=== PATIENT | male | born 1970 | race African-American/Black ===

== ENCOUNTER 2021-04-03 14:09 | Inpatient (IN) | payer BC, SELFPAY ==
[2021-04-03] VITALS (8 sets, daily range): BP systolic 125–142; BP diastolic 80–89; PULSE 119–128; RESP 20–46; TEMP 37.1–37.9; O2SAT 84–96; BMI 32.5
--- NOTE | ~2021-04-03 | XR_ITS ---
XR chest 1V portable DATE: 04/12/2021 06:05 INDICATION: Respiratory failure TECHNIQUE: Portable AP chest on 04/12/2021 at 0535 hours COMPARISON: 04/11/2021 portable AP chest at 0102 hours FINDINGS: Left upper extremity PIC catheter overlies the proximal superior vena cava. ET tube in sati sfactory position 4.1 cm above chino. NG tube in proximal stomach, proximal side-port 3 centers dist al to the diaphragmatic hiatus. Interval pneumomediastinum and subcutaneous emphysema in the cervical area since 04/11/2021. Heart size appears within normal range. There are diffuse bilateral groundglass pulmonary infiltrates. Minimal bilateral pleural effusions ar e suggested. No obvious pneumothorax. IMPRESSION: Interval pneumomediastinum and cervical subcutaneous emphysema since 04/11/2021 Reviewed, dictated and finalized at location A. R EXPERT IMPRESSION: Interval pneumomediastinum and cervical subcutaneous emphysema sinc e 04/11/2021
--- NOTE | ~2021-04-03 | XR_ITS ---
EXAMINATION: XR chest 1V portable DATE: 04/05/2021 05:39 INDICATION: Respiratory failure TECHNIQUE: frontal view of the chest was obtained. COMPARISON: Chest radiograph dated 04/04/2021 FINDINGS: Persistent opacities in the bilateral mid and lower lung zones. No pleural effusion or pneumothorax. The cardiomediastinal silhouette is normal. Left upper extremity peripherally inserted central venous catheter (PICC) tip at the caudal superior vena cava. IMPRESSION: 1. Unchanged opacities in the bilateral mid and lower lung zones which could represent pulmonary deon a or pneumonia. Reviewed, dictated and finalized at location A. SORTER IMPRESSION: 1. Unchanged opacities in the bilateral mid and lower lung zones which could re present pulmonary edema or pneumonia.
--- NOTE | ~2021-04-03 | XR_ITS ---
EXAMINATION: XR chest PICC line EXAM DATE: 04/04/2021 12:25 INDICATION: PICC line insertion. TECHNIQUE: Portable AP frontal chest x-ray was obtained. Comparison is made to prior examination from 04/03/2021. FINDINGS: There is a right-sided PICC line with tip projecting over the cavoatrial junction. Moderat e amount of bilateral ill-defined pneumonia or edema not significantly changed. No pneumothorax or pl eural effusion. The cardiomediastinal silhouette is prominent but magnified on this AP technique. Car diac silhouette is stable in size compared to prior exam. There are no osseous abnormalities identifi ed. IMPRESSION: Moderate amount of pneumonia or edema. PICC line in position. Reviewed, dictated and finalized at location A. MACEUTICAL SALESPERSON
--- NOTE | ~2021-04-03 | XR_ITS ---
EXAMINATION: XR chest 1V portable EXAM DATE: 04/08/2021 05:49 INDICATION: Respiratory failure. TECHNIQUE: Portable AP frontal chest x-ray was obtained. Comparison is made to prior examination from 04/07/2021. FINDINGS: There is a left-sided PICC line in position. Diffuse airspace disease, pneumonia and/or edema unchanged. There are no sizable pleural effusions. There is no pneumothorax suspected. The cardiomediastinal silhouette is prominent but magnified o n this AP technique. The bones and soft tissues are unremarkable. There is no significant interval change compared to prior exam. IMPRESSION: Diffuse edema or pneumonia unchanged. Reviewed, dictated and finalized at location G. GN LEADER
--- NOTE | ~2021-04-03 | XR_ITS ---
EXAMINATION: XR chest 1V portable DATE: 04/07/2021 06:33 INDICATION: Respiratory failure TECHNIQUE: frontal view of the chest was obtained. COMPARISON: Chest radiograph dated 04/06/2021 and 04/04/2021 FINDINGS: Continued gradual improvement of patchy now relatively groundglass opacities throughout the right narendra g and in the left mid and lower lung zones. No pleural effusion or pneumothorax. The cardiomediastina l silhouette is normal. Left upper extremity peripherally inserted central venous catheter (PICC) tip at the mid superior vena cava. IMPRESSION: 1. Continued gradual decrease in diffuse bilateral lung disease consistent with improving pulmonary e amilcar or pneumonia. Reviewed, dictated and finalized at location A. TENDER IMPRESSION: 1. Continued gradual decrease in diffuse bilateral lung disease consistent with improving pulmonary edema or pneumonia.
--- NOTE | ~2021-04-03 | XR_ITS ---
EXAMINATION: XR chest 1V portable INDICATION: Hypoxia TECHNIQUE: Portable AP chest at 1800 hours COMPARISON: 04/23/2015 FINDINGS: There are airspace opacities throughout all lung zones, worst in the mid and lower lung zon es. There is no pleural effusion or pneumothorax. The cardiomediastinal silhouette is normal. IMPRESSION: 1. Diffuse airspace opacities, worst in the mid and lower lung zones, likely COVID 19 pneumonia. Reviewed, dictated and finalized at location F. ER WINDER IMPRESSION: 1. Diffuse airspace opacities, worst in the mid and lower lung zones, likely CO VID 19 pneumonia.
--- NOTE | ~2021-04-03 | XR_ITS ---
XR chest 1V portable DATE: 04/15/2021 08:16 INDICATION: Covid pneumonia TECHNIQUE: Portable AP chest on 04/15/2021 at 0805 hours COMPARISON: 04/14/2021 portable AP chest at 1457 hours FINDINGS: Diffuse bilateral severe pulmonary patchy consolidating infiltrates, increased in severity since 04/14/2021. Small pleural effusions are suggested. No pneumothorax. ET tube tip 5.8 cm above chino. NG tube in stomach. IMPRESSION: Increased severe diffuse bilateral pulmonary infiltrates Reviewed, dictated and finalized at location A. MOLD OPERATOR
--- NOTE | ~2021-04-03 | XR_ITS ---
XR chest PICC line DATE: 04/09/2021 22:13 INDICATION: PICC line placement TECHNIQUE: Portable AP chest on 04/09/2021 2207 hours COMPARISON: 04/09/2021 portable AP chest at 0520 hours FINDINGS: Left upper extremity PIC catheter tip overlies the proximal superior vena cava. There are diffuse patchy bilateral pulmonary groundglass infiltrates. Normal heart size. There is minimal if any pleural effusion. No pneumothorax. IMPRESSION: Left upper stomach the catheter at proximal superior vena cava Diffuse bilateral pulmonary infiltrates persist Reviewed, dictated and finalized at Location A. Reviewed, dictated and finalized at location A. IVAL SPECIALIST
--- NOTE | ~2021-04-03 | CT_ITS ---
EXAMINATION: CTA chest PE protocol DATE: 04/03/2021 19:58 INDICATION: Hypoxia and hemoptysis TECHNIQUE: Computed tomography angiography (CTA) of the chest was performed with 100 mL Omnipaque-350 intravenous contrast timed to evaluate the pulmonary arteries. Coronal maximum intensity projection 3D-reconstructions were created by the technologist. The dose-length product (DLP) was 793.71 mGy-cm. Automated exposure control and iterative reconstruction technique were employed. COMPARISON: 04/12/2015 FINDINGS: The pulmonary arteries are well-opacified. The examination is significantly limited by resp iratory motion artifact. No central pulmonary embolus is identified. There are widespread confluent a irspace opacities in the mid and lower lung zones. There are patchy groundglass opacities of the uppe r lung zones. No pleural effusion or pneumothorax is identified. The heart size is normal. There is b ilateral hilar and mediastinal lymphadenopathy, likely reactive. IMPRESSION: 1. Diffuse lung disease, moderate to severe in the lower lung zones. In a patient with HIV, atypical pneumonia would be a likely consideration however given patient's positive COVID 19 T, findings most likely represent COVID 19 pneumonia and/or pulmonary edema with or without areas of pulmonary hemorrh age. 2. No central pulmonary embolus identified, sensitivity limited by respiratory motion artifact. Reviewed, dictated and finalized at location F. CTOR OF CLINICAL SERVICES IMPRESSION: 1. Diffuse lung disease, moderate to severe in the lower lung zones. In a patie nt with HIV, atypical pneumonia would be a likely consideration however given p atient's positive COVID 19 T, findings most likely represent COVID 19 pneumonia and/or pulmonary edema with or without areas of pulmonary hemorrhage. 2. No central pulmonary embolus identified, sensitivity limited by respiratory motion artifact.
--- NOTE | ~2021-04-03 | US_ITS ---
EXAMINATION: US venous doppler UE RT DATE: 04/14/2021 12:33 INDICATION: Right upper limb swelling TECHNIQUE: Grayscale images without and with compression and Doppler images of the bilateral upper ex tremity veins were obtained. COMPARISON: None. FINDINGS: The right internal jugular vein, subclavian vein, axillary vein, brachial vein and basilic vein are p atent. Small peripheral linear echogenic filling defect in the right cephalic vein consistent with sm all amount of age indeterminate nonocclusive thrombus. No patent right radial or ulnar veins identifi ed with no evident retrograde venous flow identified along either the patent right radial or ulnar ar teries on color Doppler and could not exclude radial or ulnar venous thrombosis. IMPRESSION: 1. Small amount of peripheral nonocclusive thrombosis in the right cephalic vein. 2. Right radial and ulnar veins are not identified with discernible retrograde venous flow on either the patent right radial or ulnar arteries and could not exclude thrombosis of the right radial and ul grazyna veins. Reviewed, dictated and finalized at location A. APPLICATIONS ANALYST IMPRESSION: 1. Small amount of peripheral nonocclusive thrombosis in the right cephalic vei n. 2. Right radial and ulnar veins are not identified with discernible retrograde venous flow on either the patent right radial or ulnar arteries and could not e xclude thrombosis of the right radial and ulnar veins.
--- NOTE | ~2021-04-03 | US_ITS ---
EXAMINATION: US renal BI DATE: 04/14/2021 12:33 INDICATION: Acute renal insufficiency TECHNIQUE: Multiple ultrasound grayscale images of the kidneys were obtained. COMPARISON: None. FINDINGS: The right kidney measures 11.3 x 4.7 x 5.5 cm. The left kidney measures 7.5 x 4.2 x 5.7 cm. The kidne ys demonstrate normal echogenicity. There is no hydronephrosis in either kidney. No stones identifie d. Young catheter within the decompressed bladder which limits evaluation. IMPRESSION: 1. Normal kidneys without hydronephrosis. Reviewed, dictated and finalized at location A. ICAL DEVICE SALES REPRESENTATIVE
--- NOTE | ~2021-04-03 | XR_ITS ---
XR chest ET placement DATE: 04/11/2021 01:14 INDICATION: Intubation. Respiratory failure. TECHNIQUE: Portable AP chest on 04/11/2021 at 0102 hours COMPARISON: 04/09/2021 portable AP chest at 2207 hours FINDINGS: Interval ET tube placement, distal tip 3 cm above chino in satisfactory position. Tip of NG tube overlies the lower thorax approximately 6 cm proximal to the diaphragmatic hiatus. Left upper stomach the catheter tip overlies the superior vena cava. Diffuse patchy groundglass infiltrates are again noted throughout both lungs. No pleural effusion or pneumothorax. IMPRESSION: NG tube is in lower chest 6 cm proximal to the diaphragmatic hiatus; advancement is recom mended Persistent extensive diffuse bilateral pulmonary infiltrates Reviewed, dictated and finalized at Location A. Reviewed, dictated and finalized at location A. TH CONTROL TESTER IMPRESSION: NG tube is in lower chest 6 cm proximal to the diaphragmatic hiatus ; advancement is recommended Persistent extensive diffuse bilateral pulmonary infiltrates
--- NOTE | ~2021-04-03 | XR_ITS ---
XR chest 1V portable DATE: 04/14/2021 06:25 INDICATION: Respiratory failure TECHNIQUE: Portable AP chest on 04/14/2021 at 0535 hours COMPARISON: 04/13/2021 portable AP chest at 1854 hours FINDINGS: ET tube in satisfactory position 4.2 cm above chino. NG tube in stomach. No central lines. Increased diffuse bilateral pulmonary infiltrates persist since 04/13/2021. Normal heart size. Interval small left pleural effusion may be present. No pneumothorax. IMPRESSION: Increased diffuse severe bilateral pulmonary infiltrates; differential diagnosis includes severe Covid pneumonia, possible ARDS Reviewed, dictated and finalized at location A. PT CARE RN IMPRESSION: Increased diffuse severe bilateral pulmonary infiltrates; different ial diagnosis includes severe Covid pneumonia, possible ARDS
--- NOTE | ~2021-04-03 | XR_ITS ---
EXAMINATION: XR chest 1V portable INDICATION: Possible retained PICC fragment TECHNIQUE: Portable AP chest at 1854 hours COMPARISON: 0540 hours FINDINGS: A left upper extremity PICC has been removed. No definite retained PICC fragment is identif ied. There are diffuse opacities throughout all lung zones with slight interval worsening. A small ri ght pleural effusion is present. There is no pneumothorax. The endotracheal tube ends approximately 4 .8 cm above the chino. The nasogastric tube is followed as far as the stomach. Its tip is beyond the inferior margin of the radiograph. IMPRESSION: 1. Left upper extremity PICC removal without definite retained catheter fragment identified. 2. Diffuse lung disease with slight interval worsening, consistent with pneumonia and/or pulmonary ed yvette and/or acute respiratory distress syndrome (ARDS). Reviewed, dictated and finalized at location F. RMATION SECURITY ENGINEER IMPRESSION: 1. Left upper extremity PICC removal without definite retained catheter fragmen t identified. 2. Diffuse lung disease with slight interval worsening, consistent with pneumon ia and/or pulmonary edema and/or acute respiratory distress syndrome (ARDS).
--- NOTE | ~2021-04-03 | US_ITS ---
EXAMINATION: US venous doppler UE EXAM DATE: 04/10/2021 08:33 INDICATION: possible picc line thrombus left arm swollen. TECHNIQUE: Multiple grayscale, color flow, Doppler sonographic images of the left upper extremity vei ns obtained by technologist. Compression was performed where able. There is no prior study for judy gleason. FINDINGS: Left upper extremity: Jugular vein: ------------> Normal. Subclavian vein: --------> Thrombosed around PICC line. Axillary vein:------------> Thrombosed around PICC line. Brachial vein:-----------> Thrombosed. Basilic vein: ------------> Thrombosed. Cephalic vein: ----------> Normal. Radial vein: ------------> Normal. Ulnar vein: > Normal. IMPRESSION: Positive for left upper extremity DVT. I discussed this with IMU nurse caring for patient at 04/10/2021 8:40 FISHER REEF NET. Reviewed, dictated and finalized at location G. ER REEF NET
--- NOTE | ~2021-04-03 | XR_ITS ---
XR chest 1V portable DATE: 04/13/2021 06:24 INDICATION: Respiratory failure TECHNIQUE: Portable AP chest on 04/13/2021 0540 hours COMPARISON: 04/12/2021 portable AP chest FINDINGS: ET tube in satisfactory position 4.5 cm above chino. NG tube ends proximal stomach, the pr oximal side-port approximately 2 cm distal to the diaphragmatic hiatus. Left upper extremity catheter overlies the proximal superior vena cava. Heart size is normal. There are diffuse bilateral pulmonary groundglass infiltrates. Mild pleural eff usions. No pneumomediastinum or pneumothorax is evident. IMPRESSION: Diffuse bilateral pulmonary groundglass infiltrates, suggesting pulmonary edema, ARDS and /or pneumonia Small bilateral pleural effusions Reviewed, dictated and finalized at location A. E WASHER IMPRESSION: Diffuse bilateral pulmonary groundglass infiltrates, suggesting pul monary edema, ARDS and/or pneumonia Small bilateral pleural effusions
--- NOTE | ~2021-04-03 | XR_ITS ---
EXAMINATION: XR chest 1V portable DATE: 04/06/2021 05:44 INDICATION: Respiratory failure TECHNIQUE: frontal view of the chest was obtained. COMPARISON: Chest radiograph dated 04/05/2021 FINDINGS: Slight interval improvement in patchy groundglass opacities throughout both lungs relatively sparing the left upper lung zone. No pleural effusion or pneumothorax. The cardiomediastinal silhouette is no rmal. Left upper extremity peripherally inserted central venous catheter (PICC) tip at the caudal knutson perior vena cava. IMPRESSION: 1. Slight decrease in diffuse bilateral lung disease which could represent improving pulmonary edema or pneumonia. Reviewed, dictated and finalized at location A. ICIAN OFFICE NURSE IMPRESSION: 1. Slight decrease in diffuse bilateral lung disease which could represent impr oving pulmonary edema or pneumonia.
--- NOTE | ~2021-04-03 | XR_ITS ---
XR chest 1V portable DATE: 04/14/2021 15:04 INDICATION: Increasing oxygen requirement TECHNIQUE: Portable AP chest on 04/14/2021 at 1457 hours COMPARISON: 04/14/2021 portable AP chest at 0535 hours FINDINGS: There is stable persistent diffuse bilateral groundglass pulmonary infiltrates. Interval small right pleural effusion in addition to mild left pleural effusion. Normal heart size. No pneumothorax. The tip of the ET tube is 4.2 cm above chino. NG tube extends into the gastric fundus, the proximal side-port situated just distal to the diaphragmatic hiatus. Advancement of the NG tube is recommended . IMPRESSION: Mild bilateral pleural effusions Persistent diffuse bilateral pulmonary infiltrates, relatively stable since earlier today Reviewed, dictated and finalized at location A. DIALYSIS RN IMPRESSION: Mild bilateral pleural effusions Persistent diffuse bilateral pulmonary infiltrates, relatively stable since ear lier today
--- NOTE | ~2021-04-03 | XR_ITS ---
XR chest 1V portable 04/09/2021 06:15 Indication: Respiratory failure Procedure: AP portable chest Comparison: Comparison to multiple prior studies sequentially, with oldest reviewed study dated 04/05. Findings: Heart size normal. PICC line tip in the SVC. Diffuse bilateral airspace disease has progres sed. No significant effusion or pneumothorax. No acute osseous abnormality. Impression: 1: Progression of diffuse bilateral airspace disease, suspicious for pneumonia. Reviewed, dictated and finalized at location A. ECTOR OPTICAL INSTRUMENT Impression: 1: Progression of diffuse bilateral airspace disease, suspicious for pneumonia.
--- NOTE | ~2021-04-03 | XR_ITS ---
XR abdomen NG/feed tube insert DATE: 04/11/2021 01:14 INDICATION: Orogastric tube placement TECHNIQUE: Portable AP view on 04/11/2021 at 0107 hours COMPARISON: None FINDINGS: Orogastric tube is present in the gastric fundus, the proximal side-port 5 cm distal to the diaphragmatic hiatus. Nonspecific bowel gas pattern. Diffuse patchy infiltrates of the included mid and lower lung zones. Normal heart size. No pleural ef fusion is evident. IMPRESSION: Orogastric tube in gastric fundus Reviewed, dictated and finalized at Location A. Reviewed, dictated and finalized at location A. NESS SOLUTIONS CONSULTANT
--- NOTE | 2021-04-03 16:31 | PC.NURSE ---
Pt called out stating he was having chest pain. dictaphone technician to pull pt back to do EKG on pt. Pt denies any other symptoms
--- NOTE | 2021-04-03 16:32 | ECG_ITS ---
Measurements Intervals [place] Rate: 120 P: 60 ND: 118 QRS: -8 QRSD: 85 T: 32 QT: 288 QTc: 408 Interpretive Statements SINUS TACHYCARDIA WITH SHORT ND INTERVAL DELAYED PRECORDIAL R/S TRANSITION CONSIDER INFERIOR INFARCT, AGE INDETERMINATE ABNORMAL ECG Electronically Signed On 04-03-2021 17:06:35 EAP CONSULTANT by Maged Toro D.O.
--- NOTE | 2021-04-03 17:30 | PC.NURSE ---
tech doing vital rounds in [facility] notified rn that pulse ox was low. finger probe, wrap around and temporal pulse ox all reading 60% with good pleth. pt noted to be tachypneic. pt placed on 15 l nrb and taken to room 8.
--- NOTE | 2021-04-03 17:49 | ED.GENADULT ---
HPI - General Adult General Chief complaint: Shortness of Breath/Dyspnea Stated complaint: im having trouble breathing x1 week Time Seen by Provider: 04/03/21 17:32 Source: patient, RN notes reviewed and old records reviewed Mode of arrival: ambulatory Limitations: no limitations History of Present Illness HPI narrative: This is a 50 year old Gentleman who presents for evaluation of shortness of breath. He states he has been having shortness of breath and cough for 1 week. He also reports epistaxis with passing clots from his nose, and he reports coughing mucous with blood. HE has intermittent chest pain. HE denies fever, chills, nausea, or vomiting. He has HIV and he reports Related Data Home Medications Medication Instructions Recorded Confirmed [id number]-lcopngna-fghobaw ala 1 tablet PO DAILY 04/03/21 04/03/21 [Biktarvy] empagliflozin [Jardiance] 10 mg PO DAILY 04/03/21 04/03/21 fenofibrate 160 mg PO DAILY 04/03/21 04/03/21 losartan 50 mg PO DAILY 04/03/21 04/03/21 metformin 500 mg PO BID 04/03/21 04/03/21 pravastatin 40 mg PO DAILY 04/03/21 04/03/21 Allergies Allergy/AdvReac Type Severity Reaction Status Date / Time Sulfa (Sulfonamide Allergy Mild rash Verified 04/03/21 18:39 Antibiotics) Review of Systems Review of Systems: All systems reviewed & are unremarkable except as noted in HPI and below Constitutional: Constitutional: Denies chills and Reports fatigue ENT: Reports system reviewed and no additional complaints, except as documented and Reports epistaxis Cardiovascular: Cardiovascular: Reports chest pain and Denies diaphoresis Respiratory: Respiratory: Reports cough, Reports hemoptysis and Reports dyspnea Gastrointestinal: Gastrointestinal: Denies abdominal pain, Denies diarrhea and Denies nausea PMFSH Past Medical History Medical History (Updated 04/04/21 @ 01:41 by Gabriella Hamilton MD) Diabetes mellitus HIV (human immunodeficiency virus infection) Surgical History Surgical History (Updated 04/03/21 @ 17:52 by Gabriella Hamilton MD) No pertinent past surgical history Family History Family History Mother Diabetes mellitus Social History Social History (Updated 04/03/21 @ 17:52 by Gabriella Hamilton MD) Smoking status: Never smoker Second hand tobacco smoke exposure: No Alcohol intake: never Substance use: never Substance use type: does not use Spiritual care concerns: No Exam Narrative: HEAD: Normocephalic, atraumatic EYES: PERRLA and EOMI, conjunctiva clear without discharge EARS: TM's clear bilaterally without erythema or dullness NOSE: Nares clear, no rhinorrhea or epistaxis THROAT:Mucous membranes moist, Oropharynx normal without erythema, exudate, peritonsillar swelling or fluctuance NECK: Supple, without lymphadenopathy or mass ABDOMEN: Soft, nontender, nondistended, normal active bowel sounds. No masses. No rebound or guarding, No organomegaly. EXTREMITIES: No edema, normal strength with full range of motion. SKIN: Warm, dry, normal color without rash NEURO: Alert and oriented x3. CN 2-12 grossly intact. No focal deficits. PSYCH: Normal mood and affect. Const: General: in distress Nutritional Appearance: average body habitus Orientation/consciousness: patient oriented x3 Resp: Effort & Inspection: able to speak in complete sentences, tachypneic, no use of accessory muscles and symmetric chest movement Auscultation: crackles diffuse Cardio: Rate: tachycardic Rhythm: regular rhythm Heart sounds: S1 normal heart sound present Course Reevaluation(s) Reevaluation #1: Patient presented with sob. It appears he likely has covid. I discussed with patient seriousness of his disease. He is currently with pulse ox in 80s on High flow oxygen 15 L. I stressed with are attempting noninvasive but warned he may need to be intubated at some point. He appears comfortable at this time so wi
[2021-04-03 17:58] LABS: Alveolar/Arterial O2 Gradient 633.5 mmHg; Base Excess ABG -2.2 mEq/l (+/-2.0); Carboxyhemoglobin 1.1 % THb (0-2.0); Fractional Inspired Oxygen 100 %; HCO3 ABG 22.2 mEq/l (22.0-26.0); Methemoglobin ABG 0.1 %THb (0-1.5); Oxygen Content ABG 18.3 %vol (16.0-22.0); PCO2 ABG 37.2 mmHg (35.0-45.0); PO2 ABG 42.3 mmHg (80.0-100.0); PO2 FiO2 Ratio Arterial Blood 0.42 %; Reduced Hemoglobin 21.6 %THb (0-5.0); Total Hemoglobin 16.9 g/dL (12.0-18.0); pH ABG 7.393 (7.350-7.450)
[2021-04-03 17:59] LABS: Device NON-REBREATHER MASK; Modified Allen's Test Pass; Oxyhemoglobin 77.2 % THb (90.0-100.0); Site Drawn RIGHT RADIAL
[2021-04-03 18:04] LABS: Basophils Percent Auto 0.2 % (0.2-1.2); Hematocrit 51.4 % (42.0-52.0); Hemoglobin 16.4 g/dL (14.0-18.0); Immature Granulocyte Absolute 0.06 K/mm3 (0.00-0.031); Immature Granulocyte Percent A 0.6 % (0-0.5); Lymphocytes Absolute Auto 0.83 K/mm3 (0.9-3.2); Lymphocytes Percent Auto 8.1 % (18.3-44.2); Mean Corpuscular HGB Conc 31.9 g/dl (32-36); Mean Corpuscular Hemoglobin 26.4 pg (26-34); Mean Corpuscular Volume 82.8 fl (80-100); Monocytes Absolute Auto 0.8 K/mm3 (0.1-0.6); Monocytes Percent Auto 7.7 % (2.6-8.5); Neutrophils Absolute Auto 8.6 K/mm3 (1.3-6.7); Neutrophils Percent Auto 83.4 % (45.5-73.1); Platelet Count Result 228 k/mm3 (150-375); Red Blood Count 6.21 M/mm3 (4.6-6.20); Red Cell Distribution Width 13.4 % (11.5-14.5); White Blood Count 10.3 K/mm3 (4.5-10.0)
[2021-04-03 18:25] LABS: Alanine Aminotransferase 32 U/L (4-50); Albumin Level 3.9 g/dL (3.5-5.1); Alkaline Phosphatase 135 U/L (38-126); Anion Gap 13 mmol/L (8-16); Aspartate Amino Transferase 47 U/L (17-59); Bilirubin,Total 0.6 mg/dL (0.2-1.3); Blood Urea Nitrogen 25 mg/dL (9-20); Calcium 9.3 mg/dL (8.4-10.2); Carbon Dioxide 25 mmol/L (22-30); Chloride 94 mmol/L (98-107); Estimated CRCL calculation 57 ml/min; Estimated Glomerular Filt Rate 60; Glucose 244 mg/dL (65-110); Potassium 4.7 mmol/L (3.4-5.0); Sodium 132 mmol/L (137-145)
[2021-04-03 18:28] LABS: NT Pro B Type Natriuretic Pept 26 pg/mL (5-100)
[2021-04-03 18:35] LABS: CRP 17.3 mg/dL (<1.0)
[2021-04-03 19:09] LABS: SARS-CoV-2 RNA PCR Positive
[2021-04-03 19:38] LABS: Troponin I < 0.012 ng/mL (0.000-0.034)
[2021-04-03 21:00] LABS: Alanine Aminotransferase 30 U/L (4-50); Estimated CRCL calculation 57 ml/min; Estimated Glomerular Filt Rate 60
--- NOTE | 2021-04-03 21:01 | PM.IMHP ---
H&P: HPI History of Present Illness Date/Time: 04/03/21 21:01 Chief Complaint: Shortness of breath Narrative: This is a 50-year-old male with past medical history significant for HIV patient is on HAART, TYPE 2 DIABETES MELLITUS CONTROLLED WITH ORAL AGENTS, hypertension, obesity. Patient presents to the emergency room due to worsening shortness of breath for roughly a week or so at the time of my visit patient was requiring BiPAP history taking is limited due to this. In the emergency room patient had as low saturations in the 88% requiring BiPAP support, patient had a temp of 99.9?, ABG showed a pH 7.39 pCO2 37 PO2 of 42, a chest x-ray showed diffuse bilateral lung infiltrates, a CTA was significant for diffuse bilateral lung infiltrates at the bases but no acute pulmonary embolism was seen. A BMP showed a creatinine of 1.5 and a BUN of 25 AC reactive protein was 17. Decision has been made to admit the patient for further evaluation, management and treatment. Review of Systems Review of Systems: Patient presented to the emergency room due to worsening shortness of breath. ROS unobtainable: Yes other (Review of system is limited due to patient being on BiPAP) Constitutional: Constitutional: Reports chills, Reports fatigue, Reports fever(s), Reports lethargy, Reports malaise and Reports night sweats Eyes: Eyes: Denies change in vision ENT: Denies dysphagia and Denies odynophagia Respiratory: Respiratory: Reports change in phlegm color, Reports cough, Reports excessive phlegm production and Reports dyspnea Gastrointestinal: Gastrointestinal: Denies abdominal pain, Denies dyspepsia, Denies heartburn, Denies diarrhea, Denies nausea and Denies vomiting PMF Past Medical History Medical History (Updated 04/04/21 @ 01:41 by Gabriella Hamilton MD) Diabetes mellitus HIV (human immunodeficiency virus infection) Surgical History Surgical History (Updated 04/03/21 @ 17:52 by Gabriella Hamilton MD) No pertinent past surgical history Family History Family History Mother Diabetes mellitus Social History Social History (Updated 04/03/21 @ 17:52 by Gabriella Hamilton MD) Smoking status: Never smoker Second hand tobacco smoke exposure: No Alcohol intake: never Substance use: never Substance use type: does not use Spiritual care concerns: No Meds Home Medications and Allergies Home Medications Medication Instructions Recorded Confirmed Type [id number]-rsrdlzfr-zjapzsf ala 1 tablet PO DAILY 04/03/21 04/03/21 History [Biktarvy] empagliflozin [Jardiance] 10 mg PO DAILY 04/03/21 04/03/21 History fenofibrate 160 mg PO DAILY 04/03/21 04/03/21 History losartan 50 mg PO DAILY 04/03/21 04/03/21 History metformin 500 mg PO BID 04/03/21 04/03/21 History pravastatin 40 mg PO DAILY 04/03/21 04/03/21 History Allergies Allergy/AdvReac Type Severity Reaction Status Date / Time Sulfa (Sulfonamide Allergy Mild rash Verified 04/03/21 18:39 Antibiotics) Vital Signs Vital Signs - 24 hr 04/03/21 14:14 04/03/21 17:50 04/03/21 18:34 Temperature 98.7 F Pulse Rate 120 H 123 H 125 H Respiratory Rate 20 36 H 39 H Blood Pressure 127/89 133/86 Pulse Oximetry 96 84 L 91 04/03/21 20:00 04/03/21 20:51 Temperature Pulse Rate 128 H 123 H Respiratory Rate 35 H 23 H Blood Pressure 125/80 Pulse Oximetry 94 93 Exam Narrative: Patient is laying in bed. BiPAP on. Const: General: cooperative, comfortable, no acute distress, well developed, alert, awake and ill appearing acutely Nutritional Appearance: obese centrally obese Orientation/consciousness: patient oriented x3 HENMT: Head: normal to inspection, normocephalic and atraumatic Ears: hearing grossly normal bilaterally General nose exam: Normal external nose present Face and sinus: normal facial exam and other (BiPAP mask on) Mouth: Yes dry mucous membranes Eyes: General: appearance normal
[2021-04-03 21:08] LABS: INR 0.9; Prothrombin Time 12.3 Seconds (11.1-14.7)
[2021-04-03 21:11] LABS: D Dimer 1.75 ug/mL (<0.48)
[2021-04-03 21:42] LABS: Glucose Point of Care 251 mg/dl (65-105)
--- NOTE | 2021-04-03 23:03 | PC.NURSE ---
This patient, Jason Cooley , was admitted to Intensive Care Unit-3 AT 2230 Patient/family oriented to hospital policies and general routines including ID bracelet, bed and alarms, visiting hours, pain management, procedures, bathroom and other care routines, personal items, smoking policy, room service/diet, and visiting hours. Information on how to activate the Rapid Response Team has been discussed. Patient/Family are encouraged to report perceived risks to care and to ask questions if they do not understand what they are told or what they should do.
[2021-04-04] VITALS (24 sets, daily range): BP systolic 114–153; BP diastolic 78–99; PULSE 102–114; RESP 21–41; TEMP 36.4–37.7; O2SAT 90–97
[2021-04-04] MEDS: REMDESIVIR 200 MG/NS 250 ML 200 MG/250 ML BAG 100 MG IVPB (00:04)
[2021-04-04] MEDS: SODIUM CHLORIDE 0.9% IV 1,000 ML 125 ML IV CONT ×3 (00:05→16:41)
[2021-04-04 04:43] LABS: Alveolar/Arterial O2 Gradient 610.5 mmHg; Base Excess ABG -2.9 mEq/l (+/-2.0); Fractional Inspired Oxygen 100 %; HCO3 ABG 21.9 mEq/l (22.0-26.0); Oxygen Content ABG 19.8 %vol (16.0-22.0); PCO2 ABG 38.6 mmHg (35.0-45.0); PO2 ABG 63.9 mmHg (80.0-100.0); PO2 FiO2 Ratio Arterial Blood 0.64 %; Total Hemoglobin 15.5 g/dL (12.0-18.0); pH ABG 7.372 (7.350-7.450)
[2021-04-04 04:44] LABS: Device BIPAP; Expiratory Pressure 10 cmH2O; Inspiratory Pressure 16 cmH2O; Modified Allen's Test Pass; Site Drawn RIGHT RADIAL
[2021-04-04 05:23] LABS: Basophils Percent Auto 0.2 % (0.2-1.2); Hematocrit 47.9 % (42.0-52.0); Hemoglobin 15.5 g/dL (14.0-18.0); Immature Granulocyte Absolute 0.05 K/mm3 (0.00-0.031); Immature Granulocyte Percent A 0.5 % (0-0.5); Lymphocytes Absolute Auto 0.77 K/mm3 (0.9-3.2); Lymphocytes Percent Auto 8.2 % (18.3-44.2); Mean Corpuscular HGB Conc 32.4 g/dl (32-36); Mean Corpuscular Hemoglobin 26.2 pg (26-34); Mean Corpuscular Volume 80.9 fl (80-100); Mean Platelet Volume 10.9 fl (7.4-10.4); Monocytes Absolute Auto 0.6 K/mm3 (0.1-0.6); Monocytes Percent Auto 6.2 % (2.6-8.5); Neutrophils Percent Auto 84.9 % (45.5-73.1); Platelet Count Result 255 k/mm3 (150-375); Red Blood Count 5.92 M/mm3 (4.6-6.20); Red Cell Distribution Width 12.9 % (11.5-14.5); White Blood Count 9.4 K/mm3 (4.5-10.0)
[2021-04-04 05:47] LABS: Alanine Aminotransferase 26 U/L (4-50); Albumin Level 3.5 g/dL (3.5-5.1); Alkaline Phosphatase 115 U/L (38-126); Anion Gap 13 mmol/L (8-16); Aspartate Amino Transferase 43 U/L (17-59); Bilirubin,Total 0.5 mg/dL (0.2-1.3); Blood Urea Nitrogen 24 mg/dL (9-20); Calcium 8.7 mg/dL (8.4-10.2); Carbon Dioxide 25 mmol/L (22-30); Chloride 98 mmol/L (98-107); Estimated CRCL calculation 61 ml/min; Estimated Glomerular Filt Rate > 60; Glucose 249 mg/dL (65-110); Potassium 4.8 mmol/L (3.4-5.0); Sodium 136 mmol/L (137-145)
[2021-04-04 05:59] LABS: Prothrombin Time 12.9 Seconds (11.1-14.7)
[2021-04-04 07:36] LABS: Glucose Point of Care 236 mg/dl (65-105)
[2021-04-04] MEDS: HEPARIN SODIUM 5,000 UNITS/ML VIAL 5000 UNITS SUB-Q ×3 (08:11→20:57)
[2021-04-04] MEDS: PRAVASTATIN SODIUM 20 MG TABLET 40 MG PO (08:11)
[2021-04-04] MEDS: LOSARTAN POTASSIUM 50 MG TABLET PO (08:11)
[2021-04-04] MEDS: FENOFIBRATE 160 MG TABLET PO (08:11)
[2021-04-04] MEDS: INSULIN ASPART (*BKC) 100 UNITS/ML SUB-Q ×5 (08:11→20:56)
--- NOTE | 2021-04-04 09:39 | PM.CNPUL ---
Assessment and Plan Assessment and plan (1) 2019 novel coronavirus-infected pneumonia (NCIP): Code(s): U07.1 - COVID-19; J12.82 - Pneumonia due to coronavirus disease 2019 Status: Acute Assessment and Plan: Patient tested positive for COVID-19 on 04/03 and started on remdesivir, dexamethasone on 04/03. Empirically started on ceftriaxone and azithromycin on 04/03 and change to vancomycin, cefepime and azithromycin on 04/04. - Remdesivir for 10 days Unless he should recover and tolerate room air with rest, ambulation and while sleeping. - Dexamethasone 6 mg IV for 10 days - Patient is on vaccinated for COVID with HIV. The recommendations for convalescent plasma are neither for or against per the NIH treatment guidelines. I discussed this with the patient and at this time he needs more time to consider whether he would want this treatment. - Patient is immunosuppressed with HIV and at this time I would not recommend tocilizumab or baricitinib. - Continuous pulse oximetry - Prone positioning as tolerated. - Avoid any fluid overload. - Emperic Vancomycin, cefepime and azithromycin pending cultures - Will check influenza swab. Patient also HIV positive and will check an extended respiratory viral pathogen swab, urine for histoplasmosis, urine for Legionella, urine for Streptococcus antigen, serum for CMV PCR. Keep saturations are 90-94% with noninvasive ventilation. I discussed code status with patient and he Needs more time to think about whether not he wishes for CPR and or mechanical ventilation at this time noninvasive ventilation is acceptable. (2) Acute respiratory failure with hypoxia: Code(s): J96.01 - Acute respiratory failure with hypoxia Status: Acute Assessment and Plan: Etiology of hypoxic respiratory failure is likely COVID pneumonia. He does have HIV And additional studies as listed above will be sent.. 04/03 17:45 100% NRB with sats 84% 04/03 18:30 BiPap 01/01 100% sats 91% 04/04 9:30 AVAPS 20, 500, EPAP10, [id number], 100% with sats 96% Keep saturations are 90-94% with noninvasive ventilation. Discussed with Dr. Wang History of Present Illness History of Present Illness Consult date: 04/05/21 Requesting physician: Bautista Wang MD Reason for consult: other (HIV with COVID pneumonia ) Chief complaint: acute respiratory failure with hypoxia, covid + Narrative: 04/04/2021: This is a new pulmonary consult for HIV with severe COVID pneumonia and hypoxemic respiratory failure 50-year-old male with a history of HIV positive for 7 years presented to the emergency department on 04/03/2021 with 1 week worsening shortness of breath. Patient states that he is followed by physician for his HIV and has pneumonia 4-5 years ago treated as an outpatient. He takes 1 pill a day and states that 1 month ago his HIV levels were undetected. At baseline he has no respiratory limitations in his activities of daily living. Patient smoked tobacco at 1 pack per day from age [age]. Patient denies vaping, illicit drug use, sandblasting, welding, asbestos were, professional painting, steel sawmilling operator. Patient works as a security solutions architect. Approximately 7 days prior to admission patient developed chills and then sinus congestion. He had no documented fevers. Patient developed worsening shortness of breath over the next week. Patient had nose bleeds 3-4 days ago but this has stopped. Patient does produce dark red phlegm but no caro hemoptysis. Patient lives with a son and 2 adult disabled adults and none of them were sick. Patient may have been exposed to COVID at [employer]. Patient is unvaccinated for COVID and unvaccinated for influenza. In the emergency department patient had a white blood cell count of 10.3, lymphocytes were 8.1%, creatinine of 1.5, D-dimer was positive and a CT angiogram of the chest demonstrated no PE with diffuse interstitial alveolar infiltrates with consolidation in the l
--- NOTE | 2021-04-04 11:09 | WPDCNINT ---
Assessment and Plan Assessment and plan (1) Acute respiratory failure with hypoxia: Code(s): J96.01 - Acute respiratory failure with hypoxia Status: Acute Assessment and Plan: Acute Respiratory failure secondary to COVID-19 pneumonia Patient's history of HIV makes it a bit more complicated Although from his lab work and history patient does not appear to be immunosuppressed but at this time will change patient to broad-spectrum antibiotics in the form of vancomycin and cefepime. At this time he is maintaining his saturations on BiPAP and also not in any distress hence will continue. I have discussed with patient that if he does not improve or becomes BiPAP dependent he will need intubation and mechanical ventilation. Patient is agreeable to intubation if need arises He will try to lay prone His CT findings appear consistent with COVID 19 pneumonia hence at this time will not pursue treatment for etiologies like PCP or CMV. Dr. Swartz will order to check influenza swab, extended respiratory viral pathogen swab, urine for histoplasmosis, urine for Legionella, urine for Streptococcus antigen, serum for CMV PCR. If he gets intubated will consider BAL depending on his respiratory status although at this time he is not stable or candidate for bronchoscopy We will try to obtain records from his HIV Clinic and since [facility] does not have infectious disease specialist will try to transfer patient to a facility with infectious disease consultation available. I have called [facility] and provided patient's information since patient was admitted there in the past. They have him on there wait list. IMPRESSION: 1. Diffuse lung disease, moderate to severe in the lower lung zones. In a patient with HIV, atypical pneumonia would be a likely consideration however given patient's positive COVID 19 T, findings most likely represent COVID 19 pneumonia and/or pulmonary edema with or without areas of pulmonary hemorrhage. 2. No central pulmonary embolus identified, sensitivity limited by respiratory motion artifact. (2) 2019 novel coronavirus-infected pneumonia (NCIP): Code(s): U07.1 - COVID-19; J12.82 - Pneumonia due to coronavirus disease 2019 Status: Acute Assessment and Plan: SARS-CoV-2 PCR positive Patient is in Airborne, Droplet and Contact Isolation Continue dexamethasone , remdesivir Convalescent plasma therapy was offered to patient by Dr. Swartz and he is not sure whether he wants to take it considering questionable benefit I encouraged patient to lay prone as much as possible Cautious IVF Continue antibiotics for empiric bacterial coverage as above Check inflammatory markers Case discussed with Dr. Swartz and we discussed options of tocilizumab or Barcitinib able but considering patient HIV disease with immunosuppression, at this time we will hold concerning high risk for secondary infections (3) HIV (human immunodeficiency virus infection): Code(s): B20 - Human immunodeficiency virus [HIV] disease Status: Acute Assessment and Plan: Patient is on Biktarvy and has not been on any medications for secondary prophylaxis He told Dr. Swartz that his viral count was undetectable when checked recently He does not appear to be leukopenic Continue his anti-retroviral therapy at this time Check CD4 (4) Diabetes mellitus: Code(s): E11.9 - Type 2 diabetes mellitus without complications Status: Acute Assessment and Plan: Sliding scale insulin Hold Jardiance and metformin at this time (5) Hyperlipidemia: Code(s): E78.5 - Hyperlipidemia, unspecified Status: Acute Assessment and Plan: Continue fenofibrate (6) Hypertension: Code(s): I10 - Essential (primary) hypertension Status: Acute Assessment and Plan: Continue losartan Additional Plan DVT prophylaxis -subQ heparin Stress ulcer prophylaxis -add PPI Nutrition -diabetic Code Status
[2021-04-04] MEDS: CENTRAL LINE FLUSH 10 ML IV PUSH ×4 (13:17→20:58)
[2021-04-04 13:59] LABS: Lactate Dehydrogenase 1149 U/L (313-618)
[2021-04-04 15:12] LABS: Influenza Control Positive
[2021-04-04 16:19] LABS: Glucose Point of Care 326 mg/dl (65-105)
[2021-04-04] MEDS: REMDESIVIR 100 MG/NS 250 ML 100 MG/250 ML BAG 250 MG IVPB (20:57)
[2021-04-04 21:13] LABS: Glucose Point of Care 211 mg/dl (65-105)
[2021-04-05] VITALS (18 sets, daily range): BP systolic 103–146; BP diastolic 68–85; PULSE 99–110; RESP 16–32; TEMP 36.1–36.7; O2SAT 83–99
[2021-04-05] MEDS: INSULIN ASPART (*BKC) 100 UNITS/ML SUB-Q ×5 (00:21→20:29)
[2021-04-05 00:25] LABS: Glucose Point of Care 245 mg/dl (65-105)
[2021-04-05 04:28] LABS: Glucose Point of Care 211 mg/dl (65-105)
[2021-04-05 05:36] LABS: Basophils Percent Auto 0.1 % (0.2-1.2); Hematocrit 45.8 % (42.0-52.0); Hemoglobin 14.7 g/dL (14.0-18.0); Immature Granulocyte Absolute 0.16 K/mm3 (0.00-0.031); Immature Granulocyte Percent A 1.1 % (0-0.5); Lymphocytes Absolute Auto 0.96 K/mm3 (0.9-3.2); Lymphocytes Percent Auto 6.4 % (18.3-44.2); Mean Corpuscular HGB Conc 32.1 g/dl (32-36); Mean Corpuscular Hemoglobin 26.3 pg (26-34); Mean Corpuscular Volume 82.1 fl (80-100); Mean Platelet Volume 10.7 fl (7.4-10.4); Monocytes Absolute Auto 1.2 K/mm3 (0.1-0.6); Monocytes Percent Auto 8.1 % (2.6-8.5); Neutrophils Absolute Auto 12.7 K/mm3 (1.3-6.7); Neutrophils Percent Auto 84.3 % (45.5-73.1); Platelet Count Result 248 k/mm3 (150-375); Red Blood Count 5.58 M/mm3 (4.6-6.20); Red Cell Distribution Width 13.4 % (11.5-14.5); White Blood Count 15.1 K/mm3 (4.5-10.0)
[2021-04-05 05:51] LABS: INR 1.1; Prothrombin Time 13.8 Seconds (11.1-14.7)
[2021-04-05 06:24] LABS: Alanine Aminotransferase 24 U/L (4-50); Alkaline Phosphatase 113 U/L (38-126); Anion Gap 6 mmol/L (8-16); Aspartate Amino Transferase 49 U/L (17-59); Bilirubin,Total 0.6 mg/dL (0.2-1.3); Blood Urea Nitrogen 25 mg/dL (9-20); Calcium 8.3 mg/dL (8.4-10.2); Carbon Dioxide 25 mmol/L (22-30); Chloride 104 mmol/L (98-107); Estimated CRCL calculation 92 ml/min; Estimated Glomerular Filt Rate > 60; Glucose 218 mg/dL (65-110); Magnesium 2.3 mg/dL (1.6-2.3); Potassium 5.5 mmol/L (3.4-5.0); Sodium 135 mmol/L (137-145)
[2021-04-05] MEDS: HEPARIN SODIUM 5,000 UNITS/ML VIAL 5000 UNITS SUB-Q ×3 (06:41→22:30)
[2021-04-05] MEDS: CENTRAL LINE FLUSH 10 ML IV PUSH ×4 (06:41→22:25)
[2021-04-05 06:43] LABS: Alveolar/Arterial O2 Gradient 583.3 mmHg; Base Excess ABG -1.2 mEq/l (+/-2.0); Carboxyhemoglobin 0.1 % THb (0-2.0); Fractional Inspired Oxygen 100 %; HCO3 ABG 23.5 mEq/l (22.0-26.0); Methemoglobin ABG 0.3 %THb (0-1.5); Oxygen Content ABG 21.1 %vol (16.0-22.0); Oxygen Saturation ABG 96.9 % (95.0-100.0); PCO2 ABG 39.5 mmHg (35.0-45.0); PO2 ABG 90.2 mmHg (80.0-100.0); Reduced Hemoglobin 3.6 %THb (0-5.0); Total Hemoglobin 15.6 g/dL (12.0-18.0); pH ABG 7.393 (7.350-7.450)
[2021-04-05 06:44] LABS: Modified Allen's Test Pass; Site Drawn RIGHT RADIAL
[2021-04-05 07:42] LABS: Device NON-INVASIVE VENT; Expiratory Pressure 10 cmH2O; Inspiratory Pressure 16 cmH2O
[2021-04-05 07:43] LABS: Glucose Point of Care 235 mg/dl (65-105)
--- NOTE | 2021-04-05 07:47 | PHAR ---
HOME MED VERIFIED = BIKTARVY TABS IN A PLASTIC BAG WITH PATIENT STICKER. NO RX LABEL, NOTHING STATING WHAT MED IS (EXCEPT HAND WRITTEN NOTE FROM FLOOR NURSE) OR HOW TO TAKE
--- NOTE | 2021-04-05 08:13 | PM.PNPUL ---
Progress Note: A&P Assessment and Plan (1) 2019 novel coronavirus-infected pneumonia (NCIP): Code(s): U07.1 - COVID-19; J12.82 - Pneumonia due to coronavirus disease 2018 Status: Acute Assessment and Plan: 04/04 Patient tested positive for COVID-19 on 04/03 and started on remdesivir, dexamethasone on 04/03. Empirically started on ceftriaxone and azithromycin on 04/03 and change to vancomycin, cefepime and azithromycin on 04/04. - Remdesivir for 10 days Unless he should recover and tolerate room air with rest, ambulation and while sleeping. - Dexamethasone 6 mg IV for 10 days - Patient is on vaccinated for COVID with HIV. The recommendations for convalescent plasma are neither for or against per the NIH treatment guidelines. I discussed this with the patient and at this time he needs more time to consider whether he would want this treatment. - Patient is immunosuppressed with HIV and at this time I would not recommend tocilizumab or baricitinib. - Continuous pulse oximetry - Prone positioning as tolerated. - Avoid any fluid overload. - Emperic Vancomycin, cefepime and azithromycin pending cultures - Negative influenza swab. Patient also HIV positive and will check an extended respiratory viral pathogen swab, urine for histoplasmosis, urine for Legionella, urine for Streptococcus antigen, serum for CMV PCR. Keep saturations are 90-94% with noninvasive ventilation. I discussed code status with patient and he Needs more time to think about whether not he wishes for CPR and or mechanical ventilation at this time noninvasive ventilation is acceptable. 04/05 04/05 Patient switched back to straight BiPAP and currently on a rate of 16, pressure 16/10 with tidal volumes 515 inspiratory time 1.0, rise of 2 on 100% FiO2 with saturations 97%. ABG is 7.39/40/90. Patient tells me he feels a little bit better this morning. He is afebrile. chest x-ray unchanged diffuse interstitial alveolar infiltrates bilaterally. influenza swab is negative. He does not wish for convalescent plasma. Continue current antibiotics and remdesevir and dexamethasone. Will attempt to see if he can tolerate airvo +15 L non-rebreather. (2) Acute respiratory failure with hypoxia: Code(s): J96.01 - Acute respiratory failure with hypoxia Status: Acute Assessment and Plan: Etiology of hypoxic respiratory failure is likely COVID pneumonia. He does have HIV And additional studies as listed above will be sent.. 04/03 17:45 100% NRB with sats 84% 04/03 18:30 BiPap 01/07 100% sats 91% 04/04 9:30 AVAPS 20, 500, EPAP10, [id number], 100% with sats 96% 04/05 08:00 BiPAP 16, 16/10, 100% sats 97% Keep saturations are 90-94% with noninvasive ventilation. Discussed with Dr. Wang Subjective Date/time seen: 04/05/21 08:13 Interval history: 04/04/2021: This is a new pulmonary consult for HIV with severe COVID pneumonia and hypoxemic respiratory failure 50-year-old male with a history of HIV positive for 7 years presented to the emergency department on 04/03/2021 with 1 week worsening shortness of breath. Patient states that he is followed by physician for his HIV and has pneumonia 4-5 years ago treated as an outpatient. He takes 1 pill a day and states that 1 month ago his HIV levels were undetected. At baseline he has no respiratory limitations in his activities of daily living. Patient smoked tobacco at 1 pack per day from age [age]. Patient denies vaping, illicit drug use, sandblasting, welding, asbestos were, professional painting, steel custom feed mill operator. Patient works as a enterprise security architect. Approximately 7 days prior to admission patient developed chills and then sinus congestion. He had no documented fevers. Patient developed worsening shortness of breath over the next week. Patient had nose bleeds 3-4 days ago but this has stopped. Patient does produce dark red phlegm but no caro hemoptysis. Patient lives with a son and 2 adult disable
[2021-04-05] MEDS: INSULIN HUMAN REGULAR (*BKC) 100 UNITS/ML 10 UNITS IV PUSH (08:51)
[2021-04-05] MEDS: INSULIN GLARGINE (*BKC) 100 UNITS/ML 20 UNITS SUB-Q (08:51)
[2021-04-05] MEDS: PANTOPRAZOLE SODIUM IV 40 MG VIAL IV PUSH (08:53)
[2021-04-05] MEDS: PRAVASTATIN SODIUM 20 MG TABLET 40 MG PO (08:53)
[2021-04-05] MEDS: FENOFIBRATE 160 MG TABLET PO (08:53)
--- NOTE | 2021-04-05 09:19 | WPDINTPN ---
Progress Note: A&P Assessment and Plan (1) Acute respiratory failure with hypoxia: Code(s): J96.01 - Acute respiratory failure with hypoxia Status: Acute Assessment and Plan: Acute Respiratory failure secondary to COVID-19 pneumonia but his history of HIV makes it a bit more complicated Although from his lab work and history patient does not appear to be immunosuppressed but at this time will continue broad-spectrum antibiotics in the form of vancomycin, azithromycin and cefepime. At this time he is maintaining his saturations on BiPAP and I will do a trial of Airvo today ABG reviewed and his chest x-ray is unchanged I have discussed with patient that if he does not improve or becomes BiPAP dependent he will need intubation and mechanical ventilation. Patient is agreeable to intubation if need arises He try to lay prone but has only been able to lay on his side His CT findings appear consistent with COVID 19 pneumonia hence at this time will not pursue treatment for etiologies like PCP or CMV. Dr. Swartz has ordered to check influenza swab, extended respiratory viral pathogen swab, urine for histoplasmosis, urine for Legionella, urine for Streptococcus antigen, serum for CMV PCR and those are still pending. If he gets intubated, will consider BAL depending on his respiratory status although at this time he is not stable or candidate for bronchoscopy We have sent a request for records to his HIV Clinic Dr. Tobias Colvin and since [facility] does not have infectious disease specialist I have tried to transfer patient to a facility with infectious disease consultation available. I have called [facility] and provided patient's information since patient was admitted there in the past. They have him on there wait list. IMPRESSION: 1. Diffuse lung disease, moderate to severe in the lower lung zones. In a patient with HIV, atypical pneumonia would be a likely consideration however given patient's positive COVID 19 T, findings most likely represent COVID 19 pneumonia and/or pulmonary edema with or without areas of pulmonary hemorrhage. 2. No central pulmonary embolus identified, sensitivity limited by respiratory motion artifact. (2) 2019 novel coronavirus-infected pneumonia (NCIP): Code(s): U07.1 - COVID-19; J12.82 - Pneumonia due to coronavirus disease 2019 Status: Acute Assessment and Plan: SARS-CoV-2 PCR positive Patient is in Airborne, Droplet and Contact Isolation Continue dexamethasone , remdesivir Convalescent plasma therapy was offered to patient by Dr. Swartz and he is not sure whether he wants to take it considering questionable benefit I encouraged patient to lay prone as much as possible Cautious IVF -currently off Continue antibiotics for empiric bacterial coverage as above Monitor inflammatory markers Case discussed with Dr. Swartz and we discussed options of tocilizumab or Barcitinib able but considering patient HIV disease with immunosuppression, at this time we will hold concerning high risk for secondary infections (3) HIV (human immunodeficiency virus infection): Code(s): B20 - Human immunodeficiency virus [HIV] disease Status: Acute Assessment and Plan: Patient is on Biktarvy and has not been on any medications for secondary prophylaxis He told Dr. Swartz that his viral count was undetectable when checked recently He does not appear to be leukopenic Continue his anti-retroviral therapy at this time Check CD4 which is pending (4) Diabetes mellitus: Code(s): E11.9 - Type 2 diabetes mellitus without complications Status: Acute Assessment and Plan: Sliding scale insulin Add Lantus Hold Jardiance and metformin at this time (5) Hyperlipidemia: Code(s): E78.5 - Hyperlipidemia, unspecified Status: Acute Assessment and Plan: Continue fenofibrate and pravastatin (6) Hypertension: Code(s): I10 - Essential (primary) hy
[2021-04-05 11:07] LABS: Glucose Point of Care 211 mg/dl (65-105)
[2021-04-05 15:50] LABS: Glucose Point of Care 202 mg/dl (65-105)
[2021-04-05] MEDS: REMDESIVIR 100 MG/NS 250 ML 100 MG/250 ML BAG 250 MG IVPB (22:25)
[2021-04-05 22:55] LABS: Glucose Point of Care 221 mg/dl (65-105)
[2021-04-06] VITALS (19 sets, daily range): BP systolic 102–136; BP diastolic 54–90; PULSE 91–113; RESP 20–32; TEMP 36.1–36.6; O2SAT 88–99
[2021-04-06] MEDS: INSULIN ASPART (*BKC) 100 UNITS/ML SUB-Q ×4 (01:13→21:07)
[2021-04-06 01:18] LABS: Glucose Point of Care 235 mg/dl (65-105)
[2021-04-06 04:49] LABS: Basophils Percent Auto 0.2 % (0.2-1.2); Eosinophils Absolute Auto 0.1 K/mm3 (0-0.3); Eosinophils Percent Auto 0.6 % (0-4.4); Hematocrit 47.4 % (42.0-52.0); Hemoglobin 15.5 g/dL (14.0-18.0); Immature Granulocyte Absolute 0.15 K/mm3 (0.00-0.031); Immature Granulocyte Percent A 0.9 % (0-0.5); Lymphocytes Absolute Auto 0.92 K/mm3 (0.9-3.2); Lymphocytes Percent Auto 5.3 % (18.3-44.2); Mean Corpuscular HGB Conc 32.7 g/dl (32-36); Mean Corpuscular Hemoglobin 26.9 pg (26-34); Mean Corpuscular Volume 82.1 fl (80-100); Mean Platelet Volume 10.7 fl (7.4-10.4); Monocytes Percent Auto 5.6 % (2.6-8.5); Neutrophils Absolute Auto 15.1 K/mm3 (1.3-6.7); Neutrophils Percent Auto 87.4 % (45.5-73.1); Platelet Count Result 256 k/mm3 (150-375); Red Blood Count 5.77 M/mm3 (4.6-6.20); Red Cell Distribution Width 13.4 % (11.5-14.5); White Blood Count 17.3 K/mm3 (4.5-10.0)
[2021-04-06 05:11] LABS: Alanine Aminotransferase 23 U/L (4-50); Albumin Level 2.7 g/dL (3.5-5.1); Alkaline Phosphatase 152 U/L (38-126); Anion Gap 8 mmol/L (8-16); Aspartate Amino Transferase 38 U/L (17-59); Bilirubin,Total 0.4 mg/dL (0.2-1.3); Blood Urea Nitrogen 22 mg/dL (9-20); CRP 6.6 mg/dL (<1.0); Calcium 8.8 mg/dL (8.4-10.2); Carbon Dioxide 26 mmol/L (22-30); Chloride 100 mmol/L (98-107); Estimated CRCL calculation 83 ml/min; Estimated Glomerular Filt Rate > 60; Glucose 163 mg/dL (65-110); Magnesium 2.3 mg/dL (1.6-2.3); Potassium 4.6 mmol/L (3.4-5.0); Sodium 134 mmol/L (137-145)
[2021-04-06 05:45] LABS: Alveolar/Arterial O2 Gradient 540.2 mmHg; Base Excess ABG -0.1 mEq/l (+/-2.0); Carboxyhemoglobin 0.2 % THb (0-2.0); Fractional Inspired Oxygen 100 %; HCO3 ABG 25.1 mEq/l (22.0-26.0); Methemoglobin ABG 0.3 %THb (0-1.5); Oxygen Saturation ABG 98.5 % (95.0-100.0); Oxyhemoglobin 97.5 % THb (90.0-100.0); PCO2 ABG 42.9 mmHg (35.0-45.0); PO2 ABG 129.9 mmHg (80.0-100.0); Total Hemoglobin 15.2 g/dL (12.0-18.0); pH ABG 7.385 (7.350-7.450)
[2021-04-06 05:46] LABS: Device NON-INVASIVE VENT; Modified Allen's Test Pass; Non-Invasive Expiratory Pressure 10 CMH2O; Non-Invasive Inspiratory Pressure 16 CMH2O; Non-Invasive Vent Rate 16 /MIN; Site Drawn RIGHT RADIAL
[2021-04-06] MEDS: HEPARIN SODIUM 5,000 UNITS/ML VIAL 5000 UNITS SUB-Q ×3 (06:30→21:09)
[2021-04-06] MEDS: CENTRAL LINE FLUSH 10 ML IV PUSH ×3 (06:31→21:09)
[2021-04-06 07:36] LABS: Glucose Point of Care 227 mg/dl (65-105)
[2021-04-06] MEDS: INSULIN GLARGINE (*BKC) 100 UNITS/ML 20 UNITS SUB-Q (08:47)
[2021-04-06] MEDS: FENOFIBRATE 160 MG TABLET PO (08:56)
[2021-04-06] MEDS: PANTOPRAZOLE SODIUM IV 40 MG VIAL IV PUSH (08:56)
[2021-04-06] MEDS: PRAVASTATIN SODIUM 20 MG TABLET 40 MG PO (08:56)
--- NOTE | 2021-04-06 09:25 | PM.PNPUL ---
Progress Note: A&P Assessment and Plan (1) 2018 novel coronavirus-infected pneumonia (NCIP): Code(s): U07.1 - COVID-19; J12.82 - Pneumonia due to coronavirus disease 2018 Status: Acute Assessment and Plan: 04/04 Patient tested positive for COVID-19 on 04/03 and started on remdesivir, dexamethasone on 04/03. Empirically started on ceftriaxone and azithromycin on 04/03 and change to vancomycin, cefepime and azithromycin on 04/04. - Remdesivir for 10 days Unless he should recover and tolerate room air with rest, ambulation and while sleeping. - Dexamethasone 6 mg IV for 10 days - Patient is on vaccinated for COVID with HIV. The recommendations for convalescent plasma are neither for or against per the NIH treatment guidelines. I discussed this with the patient and at this time he needs more time to consider whether he would want this treatment. He told me on 04/05 he does not wish for convalescent plasma. - Patient is immunosuppressed with HIV and at this time I would not recommend tocilizumab or baricitinib. - Continuous pulse oximetry - Prone positioning as tolerated. - Avoid any fluid overload. - Emperic Vancomycin, cefepime and azithromycin pending cultures - Negative influenza swab. Patient also HIV positive and will check an extended respiratory viral pathogen swab, urine for histoplasmosis, urine for Legionella, urine for Streptococcus antigen, serum for CMV PCR. Keep saturations are 90-94% with noninvasive ventilation. I discussed code status with patient and he Needs more time to think about whether not he wishes for CPR and or mechanical ventilation at this time noninvasive ventilation is acceptable. 04/05 04/05 Patient switched back to straight BiPAP and currently on a rate of 16, pressure 16/10 with tidal volumes 515 inspiratory time 1.0, rise of 2 on 100% FiO2 with saturations 97%. ABG is 7.39/40/90. Patient tells me he feels a little bit better this morning. He is afebrile. chest x-ray unchanged diffuse interstitial alveolar infiltrates bilaterally. influenza swab is negative. He does not wish for convalescent plasma. Continue current antibiotics and remdesevir and dexamethasone. Will attempt to see if he can tolerate airvo +15 L non-rebreather. 04/06 patient remains on BiPAP overnight current rate 16, pressure 16/10 with 90% FIO2. tells me he continues to slowly improve. Chest x-ray with mildly improved infiltrates. White blood cell count 17.3, creatinine 1.0. Arterial blood gases 7.39/43/130 on BiPAP 100% FiO2. Patient was slow improvement and would continue to try to place him on air of 0+ 15 L non-rebreather as tolerated. Continue BiPAP otherwise. Would continue Remdesivir and dexamethasone for 10 days. I would continue vancomycin, cefepime and azithromycin for total of [address] Wang, will sign off for now, call with any questions. (2) Acute respiratory failure with hypoxia: Code(s): J96.01 - Acute respiratory failure with hypoxia Status: Acute Assessment and Plan: Etiology of hypoxic respiratory failure is likely COVID pneumonia. He does have HIV And additional studies as listed above will be sent.. 04/03 17:45 100% NRB with sats 84% 04/03 18:30 BiPap 01/07 100% sats 91% 04/04 9:30 AVAPS 20, 500, EPAP10, [id number], 100% with sats 96% 04/05 08:00 BiPAP 16, 16/10, 100% sats 97%, Off BiPAP to high flow 60 L, 90% plus 15 L non-rebreather for approximately 4 hours on 04/05. 04/06 08:00 BiPAP 16, 16/10, 90%, sats 94% Keep saturations are 90-94% with noninvasive ventilation. Subjective Date/time seen: 04/06/21 09:25 Interval history: 04/04/2021: This is a new pulmonary consult for HIV with severe COVID pneumonia and hypoxemic respiratory failure 50-year-old male with a history of HIV positive for 7 years presented to the emergency department on 04/03/2021 with 1 week worsening shortness of breath. Patient states that he is followed by physician for h
--- NOTE | 2021-04-06 09:30 | WPDINTPN ---
Progress Note: A&P Assessment and Plan (1) Acute respiratory failure with hypoxia: Code(s): J96.01 - Acute respiratory failure with hypoxia Status: Acute Assessment and Plan: Acute Respiratory failure secondary to COVID-19 pneumonia but his history of HIV makes it a bit more complicated. Although patient has HIV and is on anti retroviral therapy therapy, from his lab work and history patient does not appear to be immunosuppressed but at this time will continue broad-spectrum antibiotics in the form of vancomycin, azithromycin and cefepime. Will continue empiric antibiotics for 7 days at the minimum unless culture come back positive Patient tolerated Airvo for few hours yesterday and will try again today haynes he is maintaining his saturations saturations on BiPAP 90% FiO2, 16/10 ABG reviewed and his chest x-ray shows marginal improvement I have discussed with patient that if he does not improve or becomes BiPAP dependent he will need intubation and mechanical ventilation. Patient is agreeable to intubation if need arises He try to lay prone but has only been able to lay on his side His CT findings appear consistent with COVID 19 pneumonia hence at this time will not pursue treatment for etiologies like PCP or CMV. Dr. Swartz has ordered to check influenza swab, extended respiratory viral pathogen swab, urine for histoplasmosis, urine for Legionella, urine for Streptococcus antigen, serum for CMV PCR and those are still pending. If he gets intubated, will consider BAL depending on his respiratory status although at this time he is not stable or candidate for bronchoscopy We have sent a request for records to his HIV Clinic Dr. Tobias Colvin and since [facility] does not have infectious disease specialist I have tried to transfer patient to a facility with infectious disease consultation available. I have called [facility] and provided patient's information since patient was admitted there in the past. They have him on there wait list. IMPRESSION: 1. Diffuse lung disease, moderate to severe in the lower lung zones. In a patient with HIV, atypical pneumonia would be a likely consideration however given patient's positive COVID 19 T, findings most likely represent COVID 19 pneumonia and/or pulmonary edema with or without areas of pulmonary hemorrhage. 2. No central pulmonary embolus identified, sensitivity limited by respiratory motion artifact. Influenza is negative (2) 2019 novel coronavirus-infected pneumonia (NCIP): Code(s): U07.1 - COVID-19; J12.82 - Pneumonia due to coronavirus disease 2019 Status: Acute Assessment and Plan: SARS-CoV-2 PCR positive Patient is in Airborne, Droplet and Contact Isolation Continue dexamethasone , remdesivir Convalescent plasma therapy was offered to patient by Dr. Swartz and he is not sure whether he wants to take it considering questionable benefit I encouraged patient to lay prone as much as possible Cautious IVF -currently off Continue antibiotics for empiric bacterial coverage as above Monitor inflammatory markers Case discussed with Dr. Swartz and we discussed options of tocilizumab or Barcitinib able but considering patient HIV disease with immunosuppression, at this time we will hold concerning high risk for secondary infections (3) HIV (human immunodeficiency virus infection): Code(s): B20 - Human immunodeficiency virus [HIV] disease Status: Acute Assessment and Plan: Patient is on Biktarvy and has not been on any medications for secondary prophylaxis He told Dr. Swartz that his viral count was undetectable when checked recently He does not appear to be leukopenic Continue his anti-retroviral therapy at this time Check CD4 which is pending (4) Diabetes mellitus: Code(s): E11.9 - Type 2 diabetes mellitus without complications Status: Acute Assessment and Plan: Sliding scale insulin Increase Lantus further Hold
[2021-04-06] MEDS: INSULIN GLARGINE (*BKC) 100 UNITS/ML 10 UNITS SUB-Q (09:56)
[2021-04-06 11:06] LABS: CMV DNA Quant PCR IU/mL Not Detected; Cytomegalovirus DNA Quant PCR Not Detected log IU/mL; Cytomegalovirus DNA Source Whole Blood
[2021-04-06 12:06] LABS: Glucose Point of Care 177 mg/dl (65-105)
--- NOTE | 2021-04-06 13:00 | P.PNCROSS_ITS ---
Event Note Event Note Event Note: Reviewed records from patient's outpatient clinic in [place]. He has history of chronic kidney disease stage 3, refused COVID vaccine, hep B immunization is complete. He had AIDS diagnosis in April of 2013 and has been on anterolateral therapy since July of 2013. His last HIV RNA PCR on 02/12 was undetectable, creatinine was 1.6, QuantiFERON gold was negative RPR is negative CD4 count was 362. Note mentions noncompliance with ART therapy by missing lot of doses and also noncompliance with diabetic medications.
[2021-04-06 14:41] LABS: INR 1.1; Prothrombin Time 13.7 Seconds (11.1-14.7)
[2021-04-06 15:13] LABS: Vancomycin Trough 14.3 ug/mL (10.0-20.0)
[2021-04-06 15:21] LABS: Lactate Dehydrogenase 1310 U/L (313-618)
[2021-04-06 16:06] LABS: Glucose Point of Care 306 mg/dl (65-105)
[2021-04-06 21:06] LABS: Glucose Point of Care 299 mg/dl (65-105)
[2021-04-06] MEDS: REMDESIVIR 100 MG/NS 250 ML 100 MG/250 ML BAG 250 MG IVPB (21:09)
[2021-04-06 23:06] LABS: Absolute CD4 Count 98 cells/uL (490-1740); Lymphocytes, Absolute 638 cells/uL (850-3900); Percent CD4 Cells 15 % (30-61)
[2021-04-06 23:22] LABS: Pneumococcal Antigen Urine Not Detected (Not Detected)
[2021-04-07] VITALS (19 sets, daily range): BP systolic 103–134; BP diastolic 75–93; PULSE 98–119; RESP 18–39; TEMP 36.7–36.9; O2SAT 89–100
[2021-04-07] MEDS: INSULIN ASPART (*BKC) 100 UNITS/ML SUB-Q ×4 (00:58→21:08)
[2021-04-07 01:02] LABS: Glucose Point of Care 207 mg/dl (65-105)
[2021-04-07 04:40] LABS: Alveolar/Arterial O2 Gradient 448.5 mmHg; Base Excess ABG 2.2 mEq/l (+/-2.0); Carboxyhemoglobin 0.7 % THb (0-2.0); Fractional Inspired Oxygen 80 %; HCO3 ABG 27.3 mEq/l (22.0-26.0); Methemoglobin ABG 0.1 %THb (0-1.5); Oxygen Content ABG 21.5 %vol (16.0-22.0); Oxygen Saturation ABG 95.3 % (95.0-100.0); Oxyhemoglobin 94.5 % THb (90.0-100.0); PCO2 ABG 43.9 mmHg (35.0-45.0); PO2 ABG 75.8 mmHg (80.0-100.0); PO2 FiO2 Ratio Arterial Blood 0.95 %; Reduced Hemoglobin 4.7 %THb (0-5.0); Total Hemoglobin 16.2 g/dL (12.0-18.0); pH ABG 7.412 (7.350-7.450)
[2021-04-07 04:41] LABS: Device NON-INVASIVE VENT; Modified Allen's Test Pass; Non-Invasive Expiratory Pressure 10 CMH2O; Non-Invasive Inspiratory Pressure 16 CMH2O; Non-Invasive Vent Rate 16 /MIN; Site Drawn RIGHT RADIAL
[2021-04-07 05:15] LABS: Basophils Percent Auto 0.1 % (0.2-1.2); Eosinophils Percent Auto 0.1 % (0-4.4); Hematocrit 48.7 % (42.0-52.0); Hemoglobin 15.5 g/dL (14.0-18.0); Immature Granulocyte Absolute 0.13 K/mm3 (0.00-0.031); Immature Granulocyte Percent A 0.8 % (0-0.5); Lymphocytes Absolute Auto 1.28 K/mm3 (0.9-3.2); Lymphocytes Percent Auto 7.8 % (18.3-44.2); Mean Corpuscular HGB Conc 31.8 g/dl (32-36); Mean Corpuscular Hemoglobin 26.2 pg (26-34); Mean Corpuscular Volume 82.4 fl (80-100); Mean Platelet Volume 10.2 fl (7.4-10.4); Monocytes Absolute Auto 1.2 K/mm3 (0.1-0.6); Monocytes Percent Auto 7.5 % (2.6-8.5); Neutrophils Absolute Auto 13.7 K/mm3 (1.3-6.7); Neutrophils Percent Auto 83.7 % (45.5-73.1); Platelet Count Result 217 k/mm3 (150-375); Red Blood Count 5.91 M/mm3 (4.6-6.20); Red Cell Distribution Width 13.3 % (11.5-14.5); White Blood Count 16.4 K/mm3 (4.5-10.0)
[2021-04-07 05:25] LABS: Alanine Aminotransferase 21 U/L (4-50); Albumin Level 2.9 g/dL (3.5-5.1); Alkaline Phosphatase 155 U/L (38-126); Anion Gap 5 mmol/L (8-16); Aspartate Amino Transferase 32 U/L (17-59); Bilirubin,Total 0.5 mg/dL (0.2-1.3); Blood Urea Nitrogen 19 mg/dL (9-20); Calcium 8.6 mg/dL (8.4-10.2); Carbon Dioxide 29 mmol/L (22-30); Chloride 99 mmol/L (98-107); Estimated CRCL calculation 76 ml/min; Estimated Glomerular Filt Rate > 60; Glucose 143 mg/dL (65-110); INR 1.1; Potassium 3.5 mmol/L (3.4-5.0); Sodium 133 mmol/L (137-145)
[2021-04-07] MEDS: HEPARIN SODIUM 5,000 UNITS/ML VIAL 5000 UNITS SUB-Q ×3 (06:01→21:09)
[2021-04-07] MEDS: CENTRAL LINE FLUSH 10 ML IV PUSH ×3 (06:01→21:10)
[2021-04-07 08:16] LABS: Glucose Point of Care 133 mg/dl (65-105)
[2021-04-07] MEDS: INSULIN GLARGINE (*BKC) 100 UNITS/ML 30 UNITS SUB-Q (08:49)
[2021-04-07] MEDS: PRAVASTATIN SODIUM 20 MG TABLET 40 MG PO (08:49)
[2021-04-07] MEDS: FENOFIBRATE 160 MG TABLET PO (08:50)
[2021-04-07] MEDS: PANTOPRAZOLE SODIUM IV 40 MG VIAL IV PUSH (08:50)
--- NOTE | 2021-04-07 09:10 | WPDINTPN ---
Progress Note: A&P Assessment and Plan (1) Acute respiratory failure with hypoxia: Code(s): J96.01 - Acute respiratory failure with hypoxia Status: Acute Assessment and Plan: Acute Respiratory failure secondary to COVID-19 pneumonia but his history of HIV makes it a bit more complicated. Although patient has HIV and is on anti retroviral therapy therapy, from his lab work and history patient does not appear to be immunosuppressed but at this time will continue broad-spectrum antibiotics in the form of vancomycin, azithromycin and cefepime. Will continue empiric antibiotics for 7 days at the minimum unless culture come back positive Patient tolerated Airvo for most of the day yesterday and will try again today haynes he is maintaining his saturations saturations on BiPAP 90% FiO2, 16/ Continue BiPAP p.r.n. and at night ABG reviewed and his chest x-ray shows marginal improvement I have discussed with patient that if he does not improve or becomes BiPAP dependent he will need intubation and mechanical ventilation. Patient is agreeable to intubation if need arises He try to lay prone but has only been able to lay on his side His CT findings appear consistent with COVID 19 pneumonia hence at this time will not pursue treatment for etiologies like PCP or CMV. Dr. Swartz has ordered to check influenza swab, extended respiratory viral pathogen swab, urine for histoplasmosis, urine for Legionella, urine for Streptococcus antigen, serum for CMV PCR and those are still pending. If he gets intubated, will consider BAL depending on his respiratory status although at this time he is not stable or candidate for bronchoscopy Since [facility] does not have infectious disease specialist I have tried to transfer patient to a facility with infectious disease consultation available. I have called [facility] and provided patient's information since patient was admitted there in the past. They have him on their wait list. IMPRESSION: 1. Diffuse lung disease, moderate to severe in the lower lung zones. In a patient with HIV, atypical pneumonia would be a likely consideration however given patient's positive COVID 19 T, findings most likely represent COVID 19 pneumonia and/or pulmonary edema with or without areas of pulmonary hemorrhage. 2. No central pulmonary embolus identified, sensitivity limited by respiratory motion artifact. Influenza is negative (2) 2019 novel coronavirus-infected pneumonia (NCIP): Code(s): U07.1 - COVID-19; J12.82 - Pneumonia due to coronavirus disease 2019 Status: Acute Assessment and Plan: SARS-CoV-2 PCR positive Patient is in Airborne, Droplet and Contact Isolation Continue dexamethasone , remdesivir Convalescent plasma therapy was offered to patient by Dr. Swartz and he is not sure whether he wants to take it considering questionable benefit I encouraged patient to lay prone as much as possible Cautious IVF -currently off Continue antibiotics for empiric bacterial coverage as above Monitor inflammatory markers Case discussed with Dr. Swartz and we discussed options of tocilizumab or Barcitinib able but considering patient HIV disease with immunosuppression, at this time we will hold concerning high risk for secondary infections (3) HIV (human immunodeficiency virus infection): Code(s): B20 - Human immunodeficiency virus [HIV] disease Status: Acute Assessment and Plan: Patient is on Biktarvy and has not been on any medications for secondary prophylaxis Reviewed records from patient's outpatient clinic in [place]. He refused COVID vaccine, hep B immunization is complete. He had AIDS diagnosis in April of 2013 and has been on anti retroviral therapy since July of 2013. His last HIV RNA PCR on 02/12 was undetectable, creatinine was 1.6, QuantiFERON gold was negative RPR is negative CD4 count was 362. Note mentions noncompliance with ART therapy by missing lot of d
[2021-04-07 11:51] LABS: Glucose Point of Care 313 mg/dl (65-105)
[2021-04-07 16:27] LABS: Glucose Point of Care 359 mg/dl (65-105)
[2021-04-07] MEDS: DAPSONE 25 MG TABLET 50 MG PO (17:32)
[2021-04-07 20:10] LABS: Glucose Point of Care 399 mg/dl (65-105)
[2021-04-07] MEDS: REMDESIVIR 100 MG/NS 250 ML 100 MG/250 ML BAG 250 MG IVPB (21:10)
[2021-04-08] VITALS (16 sets, daily range): BP systolic 106–131; BP diastolic 67–97; PULSE 100–119; RESP 18–36; TEMP 36.4–36.8; O2SAT 91–98
[2021-04-08 00:02] LABS: Glucose Point of Care 359 mg/dl (65-105)
[2021-04-08] MEDS: INSULIN ASPART (*BKC) 100 UNITS/ML SUB-Q ×6 (00:07→20:50)
[2021-04-08 03:52] LABS: Legionella pneumophila Ag Ur Not Detected (Not Detected)
[2021-04-08 05:07] LABS: Basophils Percent Auto 0.2 % (0.2-1.2); Eosinophils Percent Auto 0.1 % (0-4.4); Hematocrit 49.1 % (42.0-52.0); Hemoglobin 15.7 g/dL (14.0-18.0); Immature Granulocyte Absolute 0.21 K/mm3 (0.00-0.031); Immature Granulocyte Percent A 1.2 % (0-0.5); Lymphocytes Absolute Auto 1.31 K/mm3 (0.9-3.2); Lymphocytes Percent Auto 7.6 % (18.3-44.2); Mean Corpuscular Hemoglobin 26.5 pg (26-34); Mean Corpuscular Volume 82.9 fl (80-100); Monocytes Absolute Auto 1.4 K/mm3 (0.1-0.6); Monocytes Percent Auto 8.2 % (2.6-8.5); Neutrophils Absolute Auto 14.3 K/mm3 (1.3-6.7); Neutrophils Percent Auto 82.7 % (45.5-73.1); Platelet Count Result 189 k/mm3 (150-375); Red Blood Count 5.92 M/mm3 (4.6-6.20); Red Cell Distribution Width 13.4 % (11.5-14.5); White Blood Count 17.3 K/mm3 (4.5-10.0)
[2021-04-08 05:09] LABS: Glucose Point of Care 231 mg/dl (65-105)
[2021-04-08 05:16] LABS: Alveolar/Arterial O2 Gradient 535.6 mmHg; Base Excess ABG 2.1 mEq/l (+/-2.0); Carboxyhemoglobin 0.2 % THb (0-2.0); Fractional Inspired Oxygen 100 %; HCO3 ABG 24.6 mEq/l (22.0-26.0); Methemoglobin ABG 0.4 %THb (0-1.5); Oxygen Content ABG 22.6 %vol (16.0-22.0); Oxyhemoglobin 97.9 % THb (90.0-100.0); PO2 ABG 144.4 mmHg (80.0-100.0); PO2 FiO2 Ratio Arterial Blood 1.44 %; Reduced Hemoglobin 1.5 %THb (0-5.0); Total Hemoglobin 16.3 g/dL (12.0-18.0); pH ABG 7.491 (7.350-7.450)
[2021-04-08 05:33] LABS: Site Drawn RIGHT RADIAL
[2021-04-08 05:34] LABS: Device BIPAP; Inspiratory Pressure 16 cmH2O; Modified Allen's Test Pass
[2021-04-08 05:35] LABS: Expiratory Pressure 16 cmH2O
[2021-04-08] MEDS: HEPARIN SODIUM 5,000 UNITS/ML VIAL 5000 UNITS SUB-Q ×3 (06:19→20:51)
[2021-04-08] MEDS: CENTRAL LINE FLUSH 10 ML IV PUSH ×3 (06:19→20:50)
[2021-04-08 07:04] LABS: Alanine Aminotransferase 21 U/L (4-50); Albumin Level 2.8 g/dL (3.5-5.1); Alkaline Phosphatase 152 U/L (38-126); Anion Gap 5 mmol/L (8-16); Aspartate Amino Transferase 34 U/L (17-59); Bilirubin,Total 0.7 mg/dL (0.2-1.3); Blood Urea Nitrogen 19 mg/dL (9-20); CRP 12.9 mg/dL (<1.0); Calcium 8.5 mg/dL (8.4-10.2); Carbon Dioxide 24 mmol/L (22-30); Chloride 102 mmol/L (98-107); Estimated CRCL calculation 83 ml/min; Estimated Glomerular Filt Rate > 60; Glucose 293 mg/dL (65-110); Potassium 4.5 mmol/L (3.4-5.0); Sodium 131 mmol/L (137-145)
[2021-04-08] MEDS: PRAVASTATIN SODIUM 20 MG TABLET 40 MG PO (08:30)
[2021-04-08] MEDS: FENOFIBRATE 160 MG TABLET PO (08:30)
[2021-04-08] MEDS: PANTOPRAZOLE SODIUM IV 40 MG VIAL IV PUSH (08:30)
[2021-04-08] MEDS: DAPSONE 25 MG TABLET 50 MG PO ×2 (08:30→17:41)
[2021-04-08] MEDS: INSULIN GLARGINE (*BKC) 100 UNITS/ML 30 UNITS SUB-Q (08:30)
[2021-04-08 08:58] LABS: Glucose Point of Care 212 mg/dl (65-105)
[2021-04-08 12:34] LABS: Glucose Point of Care 229 mg/dl (65-105)
[2021-04-08 15:42] LABS: Lactate Dehydrogenase 1723 U/L (313-618)
[2021-04-08 16:28] LABS: Glucose Point of Care 278 mg/dl (65-105)
--- NOTE | 2021-04-08 18:09 | P.PNIM_ITS ---
Progress Note: A&P Assessment and Plan (1) Acute respiratory failure with hypoxia: Code(s): J96.01 - Acute respiratory failure with hypoxia Status: Acute Assessment and Plan: Acute Respiratory failure secondary to COVID-19 pneumonia but his history of HIV makes it a bit more complicated. Although patient has HIV and is on anti retroviral therapy therapy, from his lab work and history patient does not appear to be immunosuppressed but at this time will continue broad-spectrum antibiotics in the form of vancomycin, azithromycin and cefepime. Will continue empiric antibiotics for 7 days at the minimum unless culture come back positive Patient tolerated Airvo for most of the day yesterday and will try again today haynes he is maintaining his saturations saturations on BiPAP 90% FiO2, 16/ Continue BiPAP p.r.n. and at night ABG reviewed and his chest x-ray shows marginal improvement I have discussed with patient that if he does not improve or becomes BiPAP dependent he will need intubation and mechanical ventilation. Patient is agreeable to intubation if need arises He try to lay prone but has only been able to lay on his side His CT findings appear consistent with COVID 19 pneumonia hence at this time will not pursue treatment for etiologies like PCP or CMV. Dr. Swartz has ordered to check influenza swab, extended respiratory viral pathogen swab, urine for histoplasmosis, urine for Legionella, urine for Streptococcus antigen, serum for CMV PCR and those are still pending. If he gets intubated, will consider BAL depending on his respiratory status although at this time he is not stable or candidate for bronchoscopy Since [facility] does not have infectious disease specialist I have tried to transfer patient to a facility with infectious disease consultation available. I have called [facility] and provided patient's information since patient was admitted there in the past. They have him on their wait list. IMPRESSION: 1. Diffuse lung disease, moderate to severe in the lower lung zones. In a patient with HIV, atypical pneumonia would be a likely consideration however given patient's positive COVID 19 T, findings most likely represent COVID 19 pneumonia and/or pulmonary edema with or without areas of pulmonary hemorrhage. 2. No central pulmonary embolus identified, sensitivity limited by respiratory motion artifact. Influenza is negative (2) 2019 novel coronavirus-infected pneumonia (NCIP): Code(s): U07.1 - COVID-19; J12.82 - Pneumonia due to coronavirus disease 2019 Status: Acute Assessment and Plan: SARS-CoV-2 PCR positive Patient is in Airborne, Droplet and Contact Isolation Continue dexamethasone , remdesivir Convalescent plasma therapy was offered to patient by Dr. Swartz and he is not sure whether he wants to take it considering questionable benefit I encouraged patient to lay prone as much as possible Cautious IVF -currently off Continue antibiotics for empiric bacterial coverage as above Monitor inflammatory markers Case discussed with Dr. Swartz and we discussed options of tocilizumab or Barcitinib able but considering patient HIV disease with immunosuppression, at this time we will hold concerning high risk for secondary infections (3) HIV (human immunodeficiency virus infection): Code(s): B20 - Human immunodeficiency virus [HIV] disease Status: Acute Assessment and Plan: Patient is on Biktarvy and has not been on any medications for secondary prophylaxis Reviewed records from patient's outpatient clinic in [place]. He refused COVID vaccine, hep B immunization is complete. He had AIDS diagnosis in [place]
[2021-04-08] MEDS: INSULIN GLARGINE (*BKC) 100 UNITS/ML 10 UNITS SUB-Q (20:50)
[2021-04-08 21:10] LABS: Glucose Point of Care 312 mg/dl (65-105)
[2021-04-09] VITALS (18 sets, daily range): BP systolic 113–143; BP diastolic 73–102; PULSE 102–130; RESP 22–40; TEMP 36.2–37; O2SAT 90–98
[2021-04-09 00:19] LABS: Glucose Point of Care 298 mg/dl (65-105)
[2021-04-09] MEDS: INSULIN ASPART (*BKC) 100 UNITS/ML SUB-Q ×6 (00:31→21:01)
[2021-04-09] MEDS: CENTRAL LINE FLUSH 10 ML IV PUSH ×3 (04:22→21:01)
[2021-04-09] MEDS: HEPARIN SODIUM 5,000 UNITS/ML VIAL 5000 UNITS SUB-Q ×3 (04:22→21:02)
[2021-04-09 04:46] LABS: Basophils Percent Auto 0.2 % (0.2-1.2); Eosinophils Absolute Auto 0.1 K/mm3 (0-0.3); Eosinophils Percent Auto 0.3 % (0-4.4); Hematocrit 49.6 % (42.0-52.0); Hemoglobin 15.9 g/dL (14.0-18.0); Immature Granulocyte Absolute 0.33 K/mm3 (0.00-0.031); Immature Granulocyte Percent A 1.8 % (0-0.5); Lymphocytes Absolute Auto 1.32 K/mm3 (0.9-3.2); Lymphocytes Percent Auto 7.1 % (18.3-44.2); Mean Corpuscular HGB Conc 32.1 g/dl (32-36); Mean Corpuscular Hemoglobin 26.5 pg (26-34); Mean Corpuscular Volume 82.7 fl (80-100); Mean Platelet Volume 11.3 fl (7.4-10.4); Monocytes Absolute Auto 1.4 K/mm3 (0.1-0.6); Monocytes Percent Auto 7.7 % (2.6-8.5); Neutrophils Absolute Auto 15.5 K/mm3 (1.3-6.7); Neutrophils Percent Auto 82.9 % (45.5-73.1); Platelet Count Result 155 k/mm3 (150-375); Red Cell Distribution Width 13.5 % (11.5-14.5); White Blood Count 18.6 K/mm3 (4.5-10.0)
[2021-04-09 05:55] LABS: PCO2 ABG 43.4 mmHg (35.0-45.0); pH ABG 7.419 (7.350-7.450)
[2021-04-09 05:56] LABS: Base Excess ABG 2.5 mEq/l (+/-2.0); HCO3 ABG 27.5 mEq/l (22.0-26.0); PO2 ABG 50.8 mmHg (80.0-100.0)
[2021-04-09 05:57] LABS: Alveolar/Arterial O2 Gradient 618.8 mmHg; Oxygen Content ABG 20.1 %vol (16.0-22.0); Oxygen Saturation ABG 86.5 % (95.0-100.0); Total Hemoglobin 16.7 g/dL (12.0-18.0)
[2021-04-09 05:58] LABS: Carboxyhemoglobin 0.7 % THb (0-2.0); Device BIPAP; Methemoglobin ABG 0.9 %THb (0-1.5); Modified Allen's Test Pass; PO2 FiO2 Ratio Arterial Blood 0.51 %; Reduced Hemoglobin 12.4 %THb (0-5.0); Site Drawn RIGHT RADIAL
[2021-04-09 05:59] LABS: Expiratory Pressure 10 cmH2O; Inspiratory Pressure 16 cmH2O
[2021-04-09 06:39] LABS: Glucose Point of Care 303 mg/dl (65-105)
--- NOTE | 2021-04-09 09:14 | WPDINTPN ---
Progress Note: A&P Assessment and Plan (1) Acute respiratory failure with hypoxia: Code(s): J96.01 - Acute respiratory failure with hypoxia Status: Acute Assessment and Plan: Acute Respiratory failure secondary to COVID-19 pneumonia but his history of HIV makes it a bit more complicated. Although patient has HIV and is on anti retroviral therapy therapy, from his lab work and history patient does not appear to be immunosuppressed but at this time will continue broad-spectrum antibiotics in the form of vancomycin, azithromycin and cefepime. Will continue empiric antibiotics for 7 days at the minimum unless culture come back positive Patient tolerated Airvo for most of the day yesterday and will try again today haynes he is maintaining his saturations saturations on BiPAP 100% FiO2, 16/10 Continue BiPAP p.r.n. and at night ABG reviewed and his chest x-ray shows persistent bilateral infiltrate I have discussed with patient that if he does not improve or becomes BiPAP dependent he will need intubation and mechanical ventilation. Patient is agreeable to intubation if need arises He try to lay prone but has only been able to lay on his side. I have encouraged patient to try again and also get up in a chair His CT findings appear consistent with COVID 19 pneumonia hence at this time will not pursue treatment for etiologies like PCP or CMV. Dr. Swartz has ordered to check influenza swab, extended respiratory viral pathogen swab, urine for histoplasmosis, urine for Legionella, urine for Streptococcus antigen, serum for CMV PCR and those are still pending. If he gets intubated, will consider BAL depending on his respiratory status although at this time he is not stable or candidate for bronchoscopy Since [facility] does not have infectious disease specialist I have tried to transfer patient to a facility with infectious disease consultation available. I have called [facility] and provided patient's information since patient was admitted there in the past. They have him on their wait list. IMPRESSION: 1. Diffuse lung disease, moderate to severe in the lower lung zones. In a patient with HIV, atypical pneumonia would be a likely consideration however given patient's positive COVID 19 T, findings most likely represent COVID 19 pneumonia and/or pulmonary edema with or without areas of pulmonary hemorrhage. 2. No central pulmonary embolus identified, sensitivity limited by respiratory motion artifact. Influenza, urine pneumococcal and Legionella, CMV DNA quantitative PCR are negative negative (2) 2019 novel coronavirus-infected pneumonia (NCIP): Code(s): U07.1 - COVID-19; J12.82 - Pneumonia due to coronavirus disease 2019 Status: Acute Assessment and Plan: SARS-CoV-2 PCR positive Patient is in Airborne, Droplet and Contact Isolation Continue dexamethasone patient has completed a course of remdesivir Convalescent plasma therapy was offered to patient by Dr. Swartz but patient refused I encouraged patient to lay prone as much as possible Cautious IVF -currently off Continue antibiotics for empiric bacterial coverage as above Monitor inflammatory markers Case discussed with Dr. Swartz and we discussed options of tocilizumab or Barcitinib able but considering patient HIV disease with immunosuppression, at this time we will hold concerning high risk for secondary infections (3) HIV (human immunodeficiency virus infection): Code(s): B20 - Human immunodeficiency virus [HIV] disease Status: Acute Assessment and Plan: Patient is on Biktarvy and has not been on any medications for secondary prophylaxis Reviewed records from patient's outpatient clinic in [place]. He refused COVID vaccine, hep B immunization is complete. He had AIDS diagnosis in April of 2013 and has been on anti retroviral therapy since July of 2013. His last HIV RNA PCR on 02/12 was undetectable, creatinine was 1.6,
[2021-04-09] MEDS: INSULIN GLARGINE (*BKC) 100 UNITS/ML 50 UNITS SUB-Q (09:29)
[2021-04-09] MEDS: PRAVASTATIN SODIUM 20 MG TABLET 40 MG PO (09:32)
[2021-04-09] MEDS: PANTOPRAZOLE SODIUM IV 40 MG VIAL IV PUSH (09:32)
[2021-04-09] MEDS: DAPSONE 25 MG TABLET 50 MG PO ×2 (09:32→18:53)
[2021-04-09] MEDS: FENOFIBRATE 160 MG TABLET PO (09:33)
[2021-04-09 09:42] LABS: INR 1.1
[2021-04-09 09:45] LABS: Alanine Aminotransferase 23 U/L (4-50); Estimated CRCL calculation 84 ml/min; Estimated Glomerular Filt Rate > 60
[2021-04-09 10:34] LABS: Alanine Aminotransferase 23 U/L (4-50); Albumin Level 2.8 g/dL (3.5-5.1); Alkaline Phosphatase 190 U/L (38-126); Anion Gap 4 mmol/L (8-16); Aspartate Amino Transferase 37 U/L (17-59); Bilirubin,Total 0.7 mg/dL (0.2-1.3); Blood Urea Nitrogen 20 mg/dL (9-20); Calcium 8.4 mg/dL (8.4-10.2); Carbon Dioxide 30 mmol/L (22-30); Chloride 97 mmol/L (98-107); Estimated CRCL calculation 84 ml/min; Estimated Glomerular Filt Rate > 60; Glucose 229 mg/dL (65-110); Magnesium 1.9 mg/dL (1.6-2.3); Potassium 4.5 mmol/L (3.4-5.0); Sodium 131 mmol/L (137-145)
[2021-04-09 11:51] LABS: Glucose Point of Care 264 mg/dl (65-105)
[2021-04-09 11:51] LABS: Glucose Point of Care 237 mg/dl (65-105)
[2021-04-09 18:47] LABS: Glucose Point of Care 281 mg/dl (65-105)
[2021-04-09 20:08] LABS: Glucose Point of Care 247 mg/dl (65-105)
[2021-04-09] MEDS: REMDESIVIR 100 MG/NS 250 ML 100 MG/250 ML BAG 250 MG IVPB (21:00)
[2021-04-09] MEDS: INSULIN GLARGINE (*BKC) 100 UNITS/ML 10 UNITS SUB-Q (21:01)
[2021-04-10] VITALS (19 sets, daily range): BP systolic 113–141; BP diastolic 66–97; PULSE 105–130; RESP 25–44; TEMP 36–37; O2SAT 79–94; BMI 32.3
[2021-04-10 00:44] LABS: Glucose Point of Care 233 mg/dl (65-105)
[2021-04-10] MEDS: INSULIN ASPART (*BKC) 100 UNITS/ML SUB-Q ×2 (01:26→17:38)
[2021-04-10] MEDS: HEPARIN SODIUM 5,000 UNITS/ML VIAL 5000 UNITS SUB-Q (05:38)
[2021-04-10 05:46] LABS: Glucose Point of Care 123 mg/dl (65-105)
[2021-04-10] MEDS: DAPSONE 25 MG TABLET 50 MG PO ×2 (08:36→17:16)
[2021-04-10] MEDS: PRAVASTATIN SODIUM 20 MG TABLET 40 MG PO (08:36)
[2021-04-10] MEDS: FENOFIBRATE 160 MG TABLET PO (08:36)
[2021-04-10] MEDS: PANTOPRAZOLE SODIUM IV 40 MG VIAL IV PUSH (08:37)
--- NOTE | 2021-04-10 09:06 | PC.NURSE ---
Notified Dr. Oconnor patient Left upper arm PICC line is positve for thrombus per Dr. Hewitt. Notified PICC nurse Hannah counts of findings. New order for right upper arm PICC ordered by Dr. Oconnor.
--- NOTE | 2021-04-10 09:08 | PC.NURSE ---
Notified Dr. Oconnor Patient morning glucose Finger Stick is 102 and patient is not eating well. Dr. Oconnor ordered Morning Lantus dose to be reduced from 50 units to 20 units.
--- NOTE | 2021-04-10 09:33 | PC.NURSE ---
Notified Vascular nurse Hannah Counts of PICC line order for right upper arm.
--- NOTE | 2021-04-10 09:38 | PC.NURSE ---
Spoke with Hannah alonzo. Notified her of PICC line thrombus. She stated that the PICC line can still be used. High risk of developing a DVT if another PICC line is placed in the other arm. Notified Charge nurse.
--- NOTE | 2021-04-10 09:46 | PC.NURSE ---
Spoke with Dr Oconnor and discussed report stating thrombus of PICC. Dr. Farrell said to keep using PICC and he will order anti coagulation therapy for patient.
--- NOTE | 2021-04-10 09:51 | PM.IMPN ---
Progress Note: A&P Assessment and Plan (1) Acute respiratory failure with hypoxia: Code(s): J96.01 - Acute respiratory failure with hypoxia Status: Acute Assessment and Plan: Acute Respiratory failure secondary to COVID-19 pneumonia with concern for secondary bacterial infection but his history of HIV makes it a bit more complicated. Plan for empiric IV antibiotic for 7 days e Currently on BiPAP Continue BiPAP p.r.n. and at night Patient is agreeable for intubation if needed Pulmonology has ordered to check influenza swab, extended respiratory viral pathogen swab, urine for histoplasmosis, urine for Legionella, urine for Streptococcus antigen, serum for CMV PCR and those are still pending. If he gets intubated, will consider BAL depending on his respiratory status although at this time he is not stable or candidate for bronchoscopy Patient and waiting list to be transferred to [facility] for infectious disease eval. IMPRESSION: 1. Diffuse lung disease, moderate to severe in the lower lung zones. In a patient with HIV, atypical pneumonia would be a likely consideration however given patient's positive COVID 19 T, findings most likely represent COVID 19 pneumonia and/or pulmonary edema with or without areas of pulmonary hemorrhage. 2. No central pulmonary embolus identified, sensitivity limited by respiratory motion artifact. Influenza is negative (2) 2019 novel coronavirus-infected pneumonia (NCIP): Code(s): U07.1 - COVID-19; J12.82 - Pneumonia due to coronavirus disease 2019 Status: Acute Assessment and Plan: SARS-CoV-2 PCR positive Patient is in Airborne, Droplet and Contact Isolation Continue dexamethasone , remdesivir Continue prone position every 4 hours DC IV fluid Continue antibiotics for empiric bacterial coverage as above Monitor inflammatory markers options of tocilizumab or Barcitinib but considering patient HIV disease with immunosuppression, at this time we will hold concerning high risk for secondary infections (3) HIV (human immunodeficiency virus infection): Code(s): B20 - Human immunodeficiency virus [HIV] disease Status: Acute Assessment and Plan: Patient is on Biktarvy and has not been on any medications for secondary prophylaxis Reviewed records from patient's outpatient clinic in [place]. He refused COVID vaccine, hep B immunization is complete. He had AIDS diagnosis in April of 2013 and has been on anti retroviral therapy since July of 2013. His last HIV RNA PCR on 02/12 was undetectable, creatinine was 1.6, QuantiFERON gold was negative RPR is negative CD4 count was 362. Note mentions noncompliance with ART therapy by missing lot of doses Continue his anti-retroviral therapy at this time His CD4 count came back positive 98 which could be acute suppression from COVID-19 Continue PJP prophylaxis with dapsone as patient has allergy to sulfa. (4) Diabetes mellitus: Code(s): E11.9 - Type 2 diabetes mellitus without complications Status: Acute Assessment and Plan: Sliding scale insulin Lantus further Hold Jardiance and metformin at this time (5) Hyperlipidemia: Code(s): E78.5 - Hyperlipidemia, unspecified Status: Acute Assessment and Plan: Continue fenofibrate and pravastatin (6) Hypertension: Code(s): I10 - Essential (primary) hypertension Status: Acute Assessment and Plan: Continue losartan (7) Hyperkalemia: Code(s): E87.5 - Hyperkalemia Status: Acute Assessment and Plan: Likely secondary to hyperglycemia as renal function is normal and patient has good urine output. ABG does not show acidosis Improved with insulin Monitor Subjective Date/time seen: 04/10/21 09:51 Interval history: 60-year-old male with HIV with severe COVID pneumonia and hypoxemic respiratory failure Patient was treated in ICU patient currently on BiPAP currently on empiric IV an
[2021-04-10 10:33] LABS: Alveolar/Arterial O2 Gradient 618.2 mmHg; Base Excess ABG 3.5 mEq/l (+/-2.0); Fractional Inspired Oxygen 100 %; HCO3 ABG 28.5 mEq/l (22.0-26.0); Oxygen Content ABG 18.5 %vol (16.0-22.0); PCO2 ABG 44.4 mmHg (35.0-45.0); PO2 ABG 50.4 mmHg (80.0-100.0); Total Hemoglobin 15.6 g/dL (12.0-18.0); pH ABG 7.425 (7.350-7.450)
[2021-04-10 10:36] LABS: Oxygen Saturation ABG 86.4 % (95.0-100.0)
[2021-04-10 10:37] LABS: Device NON-INVASIVE VENT; Modified Allen's Test Pass; Non-Invasive Expiratory Pressure 10 CMH2O; Non-Invasive Inspiratory Pressure 16 CMH2O; Non-Invasive Vent Rate 16 /MIN; Oxyhemoglobin 84.7 % THb (90.0-100.0); Site Drawn RIGHT RADIAL
[2021-04-10 11:02] LABS: Basophils Percent Auto 0.2 % (0.2-1.2); Eosinophils Absolute Auto 0.1 K/mm3 (0-0.3); Eosinophils Percent Auto 0.5 % (0-4.4); Hematocrit 46.5 % (42.0-52.0); Hemoglobin 14.8 g/dL (14.0-18.0); Immature Granulocyte Absolute 0.63 K/mm3 (0.00-0.031); Immature Granulocyte Percent A 3.4 % (0-0.5); Lymphocytes Absolute Auto 0.74 K/mm3 (0.9-3.2); Mean Corpuscular HGB Conc 31.8 g/dl (32-36); Mean Corpuscular Hemoglobin 26.5 pg (26-34); Mean Corpuscular Volume 83.2 fl (80-100); Mean Platelet Volume 11.2 fl (7.4-10.4); Monocytes Absolute Auto 0.9 K/mm3 (0.1-0.6); Monocytes Percent Auto 4.6 % (2.6-8.5); Neutrophils Absolute Auto 16.2 K/mm3 (1.3-6.7); Neutrophils Percent Auto 87.3 % (45.5-73.1); Platelet Count Result 144 k/mm3 (150-375); Red Blood Count 5.59 M/mm3 (4.6-6.20); Red Cell Distribution Width 13.3 % (11.5-14.5); White Blood Count 18.5 K/mm3 (4.5-10.0)
[2021-04-10 11:11] LABS: INR 1.2; Prothrombin Time 14.7 Seconds (11.1-14.7)
[2021-04-10] MEDS: ENOXAPARIN 100 MG/ML SYRINGE 90 MG SUB-Q (11:43)
[2021-04-10] MEDS: INSULIN GLARGINE (*BKC) 100 UNITS/ML 20 UNITS SUB-Q (12:23)
[2021-04-10 12:34] LABS: Glucose Point of Care 183 mg/dl (65-105)
[2021-04-10] MEDS: ALTEPLASE 2 MG VIAL (CATHFLO) IV PUSH ×2 (14:15→14:16)
[2021-04-10 17:08] LABS: Glucose Point of Care 214 mg/dl (65-105)
[2021-04-10] MEDS: FUROSEMIDE INJ 40 MG/4 ML VIAL 20 MG IV PUSH (17:16)
[2021-04-10] MEDS: CENTRAL LINE FLUSH 10 ML IV PUSH ×2 (17:16→20:54)
[2021-04-10 18:30] LABS: Alanine Aminotransferase 33 U/L (4-50); Albumin Level 2.6 g/dL (3.5-5.1); Alkaline Phosphatase 189 U/L (38-126); Anion Gap 3 mmol/L (8-16); Aspartate Amino Transferase 52 U/L (17-59); Bilirubin,Total 0.9 mg/dL (0.2-1.3); Blood Urea Nitrogen 22 mg/dL (9-20); Calcium 8.4 mg/dL (8.4-10.2); Carbon Dioxide 30 mmol/L (22-30); Chloride 94 mmol/L (98-107); Estimated CRCL calculation 76 ml/min; Estimated Glomerular Filt Rate > 60; Glucose 184 mg/dL (65-110); Potassium 5.4 mmol/L (3.4-5.0); Sodium 127 mmol/L (137-145)
[2021-04-10 19:18] LABS: Lactate Dehydrogenase 1231 U/L (313-618)
--- NOTE | 2021-04-10 20:00 | PC.NURSE ---
Cathflo inserted into both picc lumens, let sit for 2 hours, withdrew 5 ML blood and discarded. Both lumens flush and have blood return.
[2021-04-10] MEDS: INSULIN GLARGINE (*BKC) 100 UNITS/ML 10 UNITS SUB-Q (20:53)
[2021-04-10 21:13] LABS: Glucose Point of Care 197 mg/dl (65-105)
[2021-04-10] MEDS: REMDESIVIR 100 MG/NS 250 ML 100 MG/250 ML BAG 250 MG IVPB (21:39)
[2021-04-10] MEDS: traMADol HCL (*CRX) 25 MG TABLET PO (21:39)
--- NOTE | 2021-04-10 23:23 | PC.NURSE ---
Pt O2 sats 78-80% with bipap settings 16/10, 100%. Pt turned to prone. Discussed intubation with pt. Pt states I will get better. I will do what I have to do, but refuses intubation. Pt does not wish to change is code status. Pt states that he is willing to be intubated if he were to code, but not until then. Awaiting ABG results.
[2021-04-10 23:31] LABS: Alveolar/Arterial O2 Gradient 620.5 mmHg; Base Excess ABG 0.8 mEq/l (+/-2.0); Carboxyhemoglobin 0.8 % THb (0-2.0); Fractional Inspired Oxygen 100 %; HCO3 ABG 25.1 mEq/l (22.0-26.0); Methemoglobin ABG 0.9 %THb (0-1.5); Oxygen Content ABG 19.2 %vol (16.0-22.0); Oxygen Saturation ABG 88.4 % (95.0-100.0); PCO2 ABG 39.3 mmHg (35.0-45.0); PO2 ABG 53.2 mmHg (80.0-100.0); PO2 FiO2 Ratio Arterial Blood 0.53 %; Reduced Hemoglobin 11.5 %THb (0-5.0); Total Hemoglobin 15.8 g/dL (12.0-18.0); pH ABG 7.423 (7.350-7.450)
[2021-04-10 23:32] LABS: Oxyhemoglobin 86.8 % THb (90.0-100.0)
[2021-04-10 23:33] LABS: Device NON-INVASIVE VENT; Modified Allen's Test Pass; Site Drawn RIGHT RADIAL
[2021-04-10 23:34] LABS: Non-Invasive Expiratory Pressure 10 CMH2O; Non-Invasive Inspiratory Pressure 16 CMH2O; Non-Invasive Vent Rate 16 /MIN
[2021-04-11] VITALS (33 sets, daily range): BP systolic 79–167; BP diastolic 50–89; PULSE 90–146; RESP 20–25; TEMP 35.7–37; O2SAT 79–96; BMI 32.1
--- NOTE | 2021-04-11 00:10 | PC.NURSE ---
brought from rm 212 for elective intubation pt transfered to bed placed on monitor
[2021-04-11] MEDS: MIDAZOLAM 100MG/NS 100ML(*CRX) 100 MG/100 ML BAG IV CONT (00:45)
[2021-04-11] MEDS: FENTANYL 2,500MCG/NS250ML(*CRX 2,500 MCG/250 ML BAG 20 MCG IV CONT ×2 (00:45→12:35)
--- NOTE | 2021-04-11 01:17 | WPDPROCEDUR ---
Procedures Intubation Intubation Date: 04/11/21 Intubation Time: 00:30 A pre-procedural Time-Out was completed immediately before starting the procedure and confirmed: Patient Identification, Site, Procedure, Patient Position and the Availability of Requisite Equipment: Yes Sedative: etomidate Mg given: 20 Paralytic: rocuronium Mg given: 70 Laryngoscope: fiber optic video scope ET tube size: cuffed Tube secured depth (cm): 25 Tube secured location: lips Tube placement confirmation: visualized tube passing through cords, equal breath sounds bilaterally, no breath sounds over epigastrium and confirmation by capnometry Patient tolerated procedure: well Intubation complications: hypoxia Additional comments: The patient was already hypoxic pre intubation. With pre oxygenation with BiPAP patient's oxygen saturations were 86%. Patient underwent RSI and did have oxygen saturations down to 67% immediately post intubation but had recovery of oxygen saturations within 5-10 minutes. Ventilator adjustments were made and oxygen saturation post intubation was between 91 and 93%. Post intubation chest x-ray demonstrated ET tube 2 cm from the [place]. ET tube pulled back 2 cm.
--- NOTE | 2021-04-11 01:22 | PM.EVENT ---
Event Note Event Note Event Note: 04/10/2021 at 23:30 Nursing staff called to notify me the patient was having increased oxygen requirements. He was already on BiPAP 07/01 with 100% FiO2. The patient was self pronating. Despite self pronating the patient oxygen saturations were 79%. An ABG was performed which correlated with the patient's clinical status. Patient was pulling good tidal volumes on BiPAP. He was tachypneic with respiratory rate in the mid 30s. Patient and generalized pallor. Skin was cool to touch. Mentation was appropriate and alert oriented x3. Patient initially stated that he did not want to be intubated because he was scared of intubation. However he stated that he wanted cardiopulmonary resuscitation if his heart stopped. I explained to the patient that without intubation that he would most definitely . I could not promise him that intubation would save his life but it least give him a chance. The patient then spoke with his sorter upholstery parts and he decided to proceed with intubation as he did not want to be made comfort measures. Subsequently the patient was moved to the ICU and intubated and placed on AC/CMV. Patient required high PEEP peep of 12 to maintain oxygen saturations greater than 90%. Tidal volumes were 320 and rate was 25. Patient was on 100% FiO2. Patient's case was discussed with the vice president compliance. Waist Cutter felt the patient would benefit from Demadex and recurrent prone Ng. I did discuss the benefits of placing the arterial line. When I went back to re-evaluate the patient he was briefly satting 97% but during the course of documentation the patient's sets of active 93%. Heart rate remains in the 130s. Chest x-ray was reviewed and demonstrated ET tube 2 cm from the chino. Subsequently ET tube was pulled back 2 cm. Repeat chest x-ray was not performed. Post intubation ABG has been ordered for 2:00 a.m.. The Condition: Critical Prognosis: Guarded 80 minutes spent critical care activities. Due to a high probability of clinically significant, life threatening deterioration, the patient required my highest level of preparedness to intervene emergently and I personally spent this critical care time directly and personally managing the patient. This critical care time included obtaining a history; examining the patient; pulse oximetry; ordering and review of studies; arranging urgent treatment with development of a management plan; evaluation of patient's response to treatment; frequent reassessment; and discussions with other providers. It was exclusive of separately billable procedures and treating other patients and teaching time. Please see Assessment and Plan section and the rest of the note for further information on patient assessment and treatment.
[2021-04-11] MEDS: ENOXAPARIN 100 MG/ML SYRINGE 90 MG SUB-Q ×2 (02:00→12:11)
[2021-04-11] MEDS: CISATRACURIUM BESYLATE 200 MG in DEXTROSE 5% 80 ML 8.12 ML IV CONT ×2 (02:13→12:18)
[2021-04-11] MEDS: CISATRACURIUM BESYLATE 20 MG/10 ML VIAL 13.5 MG IV PUSH (02:13)
[2021-04-11] MEDS: SODIUM CHLORIDE 0.9% IV 1,000 ML 999 ML IV CONT ×2 (02:30→19:53)
[2021-04-11 03:02] LABS: Alveolar/Arterial O2 Gradient 594.2 mmHg; Base Excess ABG 1.6 mEq/l (+/-2.0); Fractional Inspired Oxygen 100 %; HCO3 ABG 29.1 mEq/l (22.0-26.0); Methemoglobin ABG 0.7 %THb (0-1.5); Oxygen Content ABG 19.8 %vol (16.0-22.0); Oxygen Saturation ABG 89.6 % (95.0-100.0); Oxyhemoglobin 88.7 % THb (90.0-100.0); PO2 ABG 61.8 mmHg (80.0-100.0); PO2 FiO2 Ratio Arterial Blood 0.62 %; Reduced Hemoglobin 9.6 %THb (0-5.0); Total Hemoglobin 15.9 g/dL (12.0-18.0); pH ABG 7.326 (7.350-7.450)
[2021-04-11 03:03] LABS: Arterial Blood Gas PEEP 15 cmH2O; Arterial Blood Gas Vent Mode CMV; Arterial Blood Gas Ventilator rate 25 /MIN; Device VENTILATOR; Modified Allen's Test Unable to perform; Site Drawn LEFT RADIAL
[2021-04-11 03:04] LABS: Arterial Blood Gas Tidal Volume 320 ml
[2021-04-11 05:34] LABS: Basophils Absolute Auto 0.1 K/mm3 (0.0-0.1); Basophils Percent Auto 0.3 % (0.2-1.2); Eosinophils Absolute Auto 0.1 K/mm3 (0-0.3); Eosinophils Percent Auto 0.4 % (0-4.4); Hematocrit 44.9 % (42.0-52.0); Hemoglobin 14.4 g/dL (14.0-18.0); Immature Granulocyte Absolute 0.84 K/mm3 (0.00-0.031); Immature Granulocyte Percent A 3.6 % (0-0.5); Immature Platelet Fraction Pct 9.3 % (0.9-11.2); Lymphocytes Absolute Auto 0.94 K/mm3 (0.9-3.2); Mean Corpuscular HGB Conc 32.1 g/dl (32-36); Mean Corpuscular Hemoglobin 26.8 pg (26-34); Mean Corpuscular Volume 83.5 fl (80-100); Mean Platelet Volume 11.1 fl (7.4-10.4); Monocytes Absolute Auto 1.4 K/mm3 (0.1-0.6); Neutrophils Absolute Auto 20.1 K/mm3 (1.3-6.7); Neutrophils Percent Auto 85.7 % (45.5-73.1); Platelet Count Result 147 k/mm3 (150-375); Red Blood Count 5.38 M/mm3 (4.6-6.20); Red Cell Distribution Width 13.5 % (11.5-14.5); White Blood Count 23.4 K/mm3 (4.5-10.0)
[2021-04-11 05:43] LABS: INR 1.2; Prothrombin Time 15.3 Seconds (11.1-14.7)
[2021-04-11 05:47] LABS: Add Urine Microscopic? YES; Amorphous Sediment Urine Moderate; Appearance Urine Cloudy (Clear); Bacteria Urine Trace /hpf; Bilirubin Urine Negative (Negative); Blood Urine 2+ (Negative); Color Urine Yellow (Yellow); Glucose Urine UA 3+ mg/dL (Negative); Ketones Urine Negative (Negative); Leukocyte Esterase Ur Negative LEU/UL (Negative); Mucus Urine Rare /lpf; Nitrate Urine Negative (Negative); Protein Urine 1+ mg/dL (Negative); RBC Urine 21-50 /hpf (0-2); Specific Grav Ur 1.013 (1.001-1.035); Squamous Epithelial Cell Urine Rare /hpf (Few); Urobilinogen Urine Negative mg/dL (<2.0); WBC Urine 0-3 /hpf
[2021-04-11 06:11] LABS: Phosphorus 4.2 mg/dL (2.5-4.5)
[2021-04-11] MEDS: CENTRAL LINE FLUSH 10 ML IV PUSH ×2 (06:44→15:36)
[2021-04-11] MEDS: PANTOPRAZOLE SODIUM IV 40 MG VIAL IV PUSH (08:13)
[2021-04-11] MEDS: FENOFIBRATE 160 MG TABLET PO (08:13)
[2021-04-11] MEDS: FAMOTIDINE 20 MG/2 ML VIAL IV PUSH (08:13)
[2021-04-11] MEDS: PRAVASTATIN SODIUM 20 MG TABLET 40 MG PO (08:13)
[2021-04-11] MEDS: FUROSEMIDE INJ 40 MG/4 ML VIAL 20 MG IV PUSH (08:14)
[2021-04-11] MEDS: DAPSONE 25 MG TABLET 50 MG PO ×2 (08:15→17:40)
[2021-04-11] MEDS: INSULIN GLARGINE (*BKC) 100 UNITS/ML 50 UNITS SUB-Q (08:20)
[2021-04-11 08:41] LABS: Glucose Point of Care 161 mg/dl (65-105)
[2021-04-11] MEDS: MINERAL OIL/WHITE PETROLATUM OINTMENT 1 APPLIC EACH EYE ×2 (09:15→21:40)
[2021-04-11 11:14] LABS: Vancomycin Trough 20.2 ug/mL (10.0-20.0)
[2021-04-11 12:01] LABS: Alanine Aminotransferase 30 U/L (4-50); Albumin Level 2.3 g/dL (3.5-5.1); Alkaline Phosphatase 190 U/L (38-126); Anion Gap 8 mmol/L (8-16); Aspartate Amino Transferase 42 U/L (17-59); Bilirubin,Total 0.7 mg/dL (0.2-1.3); Blood Urea Nitrogen 28 mg/dL (9-20); Calcium 8.1 mg/dL (8.4-10.2); Carbon Dioxide 25 mmol/L (22-30); Chloride 97 mmol/L (98-107); Estimated CRCL calculation 70 ml/min; Estimated Glomerular Filt Rate > 60; Glucose 179 mg/dL (65-110); Magnesium 1.9 mg/dL (1.6-2.3); Potassium 4.8 mmol/L (3.4-5.0); Sodium 130 mmol/L (137-145)
[2021-04-11] MEDS: MIDAZOLAM 100MG/NS 100ML(*CRX) 100 MG/100 ML BAG 6 MG IV CONT (12:35)
--- NOTE | 2021-04-11 12:56 | WPDINTPN ---
Progress Note: A&P Assessment and Plan (1) Acute respiratory failure with hypoxia: Code(s): J96.01 - Acute respiratory failure with hypoxia Status: Acute Assessment and Plan: Acute Respiratory failure secondary to COVID-19 pneumonia but his history of HIV makes it a bit more complicated. He has been on Airvo and BiPAP till now 04/11 intubated speech therapist early intervention due to worsening hypoxia despite 100% FiO2 on BiPAP Continue prone ventilation Chest x-ray reviewed ABG reviewed. Currently on 100% FiO2 and 15. Increase TV to [address] findings appear consistent with COVID 19 pneumonia hence treatment for other etiologies like PCP or CMV etc was not pursued. Dr. Swartz has ordered to check influenza swab, extended respiratory viral pathogen swab, urine for histoplasmosis, urine for Legionella, urine for Streptococcus antigen, serum for CMV PCR, Influenza, urine pneumococcal and Legionella, CMV DNA quantitative PCR are negative negative. Others are pending Since he is now intubated, if his oxygenation improves to a reasonable level will consider will consider BAL Since [facility] does not have infectious disease specialist I have tried to transfer patient to a facility with infectious disease consultation available. I have called [facility] and provided patient's information since patient was admitted there in the past. They have him on their wait list which was confirmed again today 04/11 IMPRESSION: 1. Diffuse lung disease, moderate to severe in the lower lung zones. In a patient with HIV, atypical pneumonia would be a likely consideration however given patient's positive COVID 19 T, findings most likely represent COVID 19 pneumonia and/or pulmonary edema with or without areas of pulmonary hemorrhage. 2. No central pulmonary embolus identified, sensitivity limited by respiratory motion artifact. (2) 2019 novel coronavirus-infected pneumonia (NCIP): Code(s): U07.1 - COVID-19; J12.82 - Pneumonia due to coronavirus disease 2019 Status: Acute Assessment and Plan: SARS-CoV-2 PCR positive Patient is in Airborne, Droplet and Contact Isolation Continue dexamethasone Patient has completed a course of remdesivir Convalescent plasma therapy was offered to patient by Dr. Swartz but patient refused Continue antibiotics for empiric bacterial coverage as above Monitor inflammatory markers which are improving Case discussed with Dr. Swartz on admission and we discussed options of tocilizumab or Barcitinib able but considering patient HIV disease with immunosuppression, at this time we will hold concerning high risk for secondary infections (3) HIV (human immunodeficiency virus infection): Code(s): B20 - Human immunodeficiency virus [HIV] disease Status: Acute Assessment and Plan: Patient is on Biktarvy and has not been on any medications for secondary prophylaxis Reviewed records from patient's outpatient clinic in [place]. He refused COVID vaccine, hep B immunization is complete. He had AIDS diagnosis in April of 2013 and has been on anti retroviral therapy since July of 2013. His last HIV RNA PCR on 02/12 was undetectable, creatinine was 1.6, QuantiFERON gold was negative RPR is negative CD4 count was 362. Note mentions noncompliance with ART therapy by missing lot of doses Continue his anti-retroviral therapy at this time His CD4 count came back positive 98 which could be acute suppression from COVID-19 Will start PJP prophylaxis with dapsone as patient has allergy to sulfa. Patient does not remember the name of the drug he took but he states that he was unable to breathe and states that he is allergic to sulfa drugs. (4) Diabetes mellitus: Code(s): E11.9 - Type 2 diabetes mellitus without complications Status: Acute Assessment and Plan: Sliding scale insulin and Lantus Hold Jardiance and metformin at this time (5) Hyperlipidemia: Code(s): E78.
--- NOTE | 2021-04-11 13:39 | PCNFU ---
Nutrition Follow-Up Complete: Inadequate oral intake related to ARF w/hypoxia and covid as evidenced by reported average intake of 44% Goal: Meet nutritional needs Pt. is progressing towards goal. No new goal at this time. Pt current nutrition is Glucerna 1.2, but spoke with MD who is going to change feeding to Vital AF 1.2 with a goal rate of 70 mls per hour over 22 hours per day. Last recorded weight is 90.2 kg. Bowel Motility: + BM 04/07/2021 Labs Reviewed: Alb 2.3, Na 130, BUN 28, Glu 179, POC Capillary Glucose 161 Meds Noted: Zithromax, Lovenox, Fentanyl Citrate, Glucagon, Glucose, Novolog, Cozaar, Versed, Protonix, Remdesivir, Sodium Chloride, Vancomycin Hcl Skin: No pressure injuries at this time. WNL. Additional Notes: Recommended switching feeding from Glucerna 1.2 to Vital AF 1.2 at 70 mls per hour over 22 hours per day to provide in total 1848 calories, 116 grams of protein and 1,249 mls of water. There are less carbs in Vital AF 1.2 than Glucerna 1.2 which will help prevent hyperglycemia. Will monitor labs, medications, wt, and reported intake every 5 days
[2021-04-11] MEDS: INSULIN ASPART (*BKC) 100 UNITS/ML SUB-Q ×2 (17:40→21:39)
[2021-04-11 17:58] LABS: Glucose Point of Care 262 mg/dl (65-105)
[2021-04-11] MEDS: INSULIN GLARGINE (*BKC) 100 UNITS/ML 10 UNITS SUB-Q (21:39)
[2021-04-11] MEDS: NOREPINEPHRINE 8 MG/D5W 250 ML 8 MG/250 ML BAG 9.38 MG IV CONT (21:40)
[2021-04-11] MEDS: REMDESIVIR 100 MG/NS 250 ML 100 MG/250 ML BAG 250 MG IVPB (21:41)
[2021-04-11 21:48] LABS: Glucose Point of Care 208 mg/dl (65-105)
[2021-04-12] VITALS (33 sets, daily range): BP systolic 86–125; BP diastolic 45–68; PULSE 91–134; RESP 25; TEMP 35.9–36.8; O2SAT 94–98
[2021-04-12] MEDS: ENOXAPARIN 100 MG/ML SYRINGE 90 MG SUB-Q ×2 (00:54→12:08)
[2021-04-12] MEDS: CISATRACURIUM BESYLATE 200 MG in DEXTROSE 5% 80 ML 8.12 ML IV CONT (00:55)
[2021-04-12] MEDS: CENTRAL LINE FLUSH 10 ML IV PUSH ×4 (00:58→20:22)
[2021-04-12] MEDS: INSULIN ASPART (*BKC) 100 UNITS/ML SUB-Q ×6 (01:02→19:55)
[2021-04-12] MEDS: FENTANYL 2,500MCG/NS250ML(*CRX 2,500 MCG/250 ML BAG 20 MCG IV CONT ×2 (01:05→12:40)
[2021-04-12 01:06] LABS: Glucose Point of Care 233 mg/dl (65-105)
[2021-04-12 05:09] LABS: Alveolar/Arterial O2 Gradient 595.4 mmHg; Base Excess ABG -0.8 mEq/l (+/-2.0); Carboxyhemoglobin 0.3 % THb (0-2.0); Fractional Inspired Oxygen 100 %; HCO3 ABG 25.2 mEq/l (22.0-26.0); Methemoglobin ABG 1.2 %THb (0-1.5); Oxygen Content ABG 18.8 %vol (16.0-22.0); Oxygen Saturation ABG 93.5 % (95.0-100.0); PCO2 ABG 46.5 mmHg (35.0-45.0); PO2 ABG 71.1 mmHg (80.0-100.0); PO2 FiO2 Ratio Arterial Blood 0.71 %; Reduced Hemoglobin 6.5 %THb (0-5.0); Total Hemoglobin 14.5 g/dL (12.0-18.0); pH ABG 7.352 (7.350-7.450)
[2021-04-12 05:10] LABS: Arterial Blood Gas Ventilator rate 25 /MIN; Device VENTILATOR; Modified Allen's Test Pass; Site Drawn RIGHT RADIAL
[2021-04-12 05:11] LABS: Arterial Blood Gas PEEP 15 cmH2O; Arterial Blood Gas Tidal Volume 370 ml; Arterial Blood Gas Vent Mode CMV
[2021-04-12 06:39] LABS: Basophils Absolute Auto 0.1 K/mm3 (0.0-0.1); Basophils Percent Auto 0.2 % (0.2-1.2); Eosinophils Absolute Auto 0.1 K/mm3 (0-0.3); Eosinophils Percent Auto 0.5 % (0-4.4); Hematocrit 40.3 % (42.0-52.0); Hemoglobin 12.9 g/dL (14.0-18.0); Immature Granulocyte Absolute 0.53 K/mm3 (0.00-0.031); Immature Granulocyte Percent A 1.9 % (0-0.5); Lymphocytes Absolute Auto 0.75 K/mm3 (0.9-3.2); Lymphocytes Percent Auto 2.7 % (18.3-44.2); Mean Corpuscular Hemoglobin 26.3 pg (26-34); Mean Corpuscular Volume 82.1 fl (80-100); Mean Platelet Volume 12.4 fl (7.4-10.4); Monocytes Absolute Auto 1.6 K/mm3 (0.1-0.6); Monocytes Percent Auto 5.8 % (2.6-8.5); Neutrophils Absolute Auto 24.6 K/mm3 (1.3-6.7); Neutrophils Percent Auto 88.9 % (45.5-73.1); Platelet Count Result 134 k/mm3 (150-375); Red Blood Count 4.91 M/mm3 (4.6-6.20); Red Cell Distribution Width 13.6 % (11.5-14.5); White Blood Count 27.7 K/mm3 (4.5-10.0)
[2021-04-12 07:24] LABS: Alanine Aminotransferase 33 U/L (4-50); Albumin Level 2.3 g/dL (3.5-5.1); Alkaline Phosphatase 146 U/L (38-126); Anion Gap 7 mmol/L (8-16); Aspartate Amino Transferase 40 U/L (17-59); Bilirubin,Total 0.5 mg/dL (0.2-1.3); Blood Urea Nitrogen 39 mg/dL (9-20); CRP 8.6 mg/dL (<1.0); Calcium 7.2 mg/dL (8.4-10.2); Carbon Dioxide 24 mmol/L (22-30); Chloride 96 mmol/L (98-107); Estimated CRCL calculation 53 ml/min; Estimated Glomerular Filt Rate 56; Glucose 299 mg/dL (65-110); Phosphorus 4.1 mg/dL (2.5-4.5); Sodium 127 mmol/L (137-145)
[2021-04-12 07:25] LABS: Potassium 5.3 mmol/L (3.4-5.0)
[2021-04-12 09:00] LABS: Glucose Point of Care 241 mg/dl (65-105)
[2021-04-12] MEDS: SODIUM CHLORIDE 0.9% IV 500 ML IV CONT (09:30)
[2021-04-12] MEDS: INSULIN HUMAN REGULAR (*BKC) 100 UNITS/ML 10 UNITS IV PUSH (09:31)
[2021-04-12] MEDS: DAPSONE 25 MG TABLET 50 MG PO ×2 (09:31→17:36)
[2021-04-12] MEDS: MINERAL OIL/WHITE PETROLATUM OINTMENT 1 APPLIC EACH EYE ×2 (09:32→19:58)
[2021-04-12] MEDS: FENOFIBRATE 160 MG TABLET PO (09:32)
[2021-04-12] MEDS: PRAVASTATIN SODIUM 20 MG TABLET 40 MG PO (09:32)
[2021-04-12] MEDS: INSULIN GLARGINE (*BKC) 100 UNITS/ML 50 UNITS SUB-Q (09:36)
[2021-04-12] MEDS: PANTOPRAZOLE SODIUM IV 40 MG VIAL IV PUSH (09:37)
[2021-04-12] MEDS: SODIUM POLYSTYRENE SULFONONATE 15 GM/60 ML BTL 30 GM PO (09:52)
[2021-04-12] MEDS: CALCIUM GLUC 2,000 MG/NS 100ML 2,000 MG/100 ML BAG 100 MG IVPB (09:54)
[2021-04-12] MEDS: SODIUM CHLORIDE 0.9% IV 1,000 ML 100 ML IV CONT (10:02)
--- NOTE | 2021-04-12 11:32 | WPDINTPN ---
Progress Note: A&P Assessment and Plan (1) Acute respiratory failure with hypoxia: Code(s): J96.01 - Acute respiratory failure with hypoxia Status: Acute Assessment and Plan: Acute Respiratory failure secondary to COVID-19 pneumonia but his history of HIV makes it a bit more complicated. He has been on Airvo and BiPAP till now 04/11 intubated test preparation tutor due to worsening hypoxia despite 100% FiO2 on BiPAP Continues to be on 100% FiO2 and 15 of PEEP. Will increase PEEP to 18 Chest x-ray reviewed and shows I nterval pneumomediastinum and cervical subcutaneous emphysema since 04/11/2021 Will trial supine position and see if patient tolerates but otherwise will continue daily prone ventilation ABG reviewed. Currently on 100% FiO2 and 15. Continue TV to [address] findings appear consistent with COVID 19 pneumonia hence treatment for other etiologies like PCP or CMV etc was not pursued. Dr. Swartz has ordered to check influenza swab, extended respiratory viral pathogen swab, urine for histoplasmosis, urine for Legionella, urine for Streptococcus antigen, serum for CMV PCR, Influenza, urine pneumococcal and Legionella, CMV DNA quantitative PCR are negative negative. Others are pending Since he is now intubated, if his oxygenation improves to a reasonable level will consider will consider BAL but patient too unstable and hypoxic at this time for bronchoscopy Since [facility] does not have infectious disease specialist I have tried to transfer patient to a facility with infectious disease consultation available. I have called [facility] and provided patient's information since patient was admitted there in the past. They have him on their wait list which was confirmed again today 04/11 IMPRESSION: 1. Diffuse lung disease, moderate to severe in the lower lung zones. In a patient with HIV, atypical pneumonia would be a likely consideration however given patient's positive COVID 19 T, findings most likely represent COVID 19 pneumonia and/or pulmonary edema with or without areas of pulmonary hemorrhage. 2. No central pulmonary embolus identified, sensitivity limited by respiratory motion artifact. (2) 2019 novel coronavirus-infected pneumonia (NCIP): Code(s): U07.1 - COVID-19; J12.82 - Pneumonia due to coronavirus disease 2019 Status: Acute Assessment and Plan: SARS-CoV-2 PCR positive Patient is in Airborne, Droplet and Contact Isolation Continue dexamethasone Patient has completed a course of remdesivir Convalescent plasma therapy was offered to patient by Dr. Swartz but patient refused Continue antibiotics for empiric bacterial coverage as above Monitor inflammatory markers which are improving Case discussed with Dr. Swartz on admission and we discussed options of tocilizumab or Barcitinib able but considering patient HIV disease with immunosuppression, at this time we will hold concerning high risk for secondary infections (3) HIV (human immunodeficiency virus infection): Code(s): B20 - Human immunodeficiency virus [HIV] disease Status: Acute Assessment and Plan: Patient is on Biktarvy and has not been on any medications for secondary prophylaxis Reviewed records from patient's outpatient clinic in [place]. He refused COVID vaccine, hep B immunization is complete. He had AIDS diagnosis in April of 2013 and has been on anti retroviral therapy since July of 2013. His last HIV RNA PCR on 02/12 was undetectable, creatinine was 1.6, QuantiFERON gold was negative RPR is negative CD4 count was 362. Note mentions noncompliance with ART therapy by missing lot of doses Continue his anti-retroviral therapy at this time His CD4 count came back positive 98 which could be acute suppression from COVID-19 Continue PJP prophylaxis with dapsone as patient has allergy to sulfa. Patient does not remember the name of the drug he took but he states that he was unable to breathe and state
--- NOTE | 2021-04-12 12:07 | PCFNICU ---
ICU Rounding Note: Pt current nutrition is Glucerna 1.2 at 50 ml/hr over 22 hours. Nutrition recommendation: 70 ml/hr over 22 hours. Last recorded weight is 91 kg. Bowel Motility:+BM reported 04/07 Labs Reviewed:Glu 299, BUN 39,K 5.3,Alb 2.3,Hct 40.3.Hgb 12.9, Na 127 Meds Noted:Zithromax, Lovenox, Fentanyl Citrate, Glucagon, Glucose, Novolog, Cozaar, Versed, Protonix, Remdesivir, Sodium Chloride, Vancomycin Hcl, NS. Skin:WNL Additional Notes: Patient remains on mechanical vent and tube feedings of Glucerna 1.2 at 50 ml/hr over 22 hours. Plans for advancing tube feeding to 70 ml/hr over 22 hours to better meet caloric needs, providing 1848 kcals/92 gms protein/1240 ml water. Following daily in ICU rounds. Reassessing every Saturday and Saturday.
[2021-04-12 12:17] LABS: Glucose Point of Care 263 mg/dl (65-105)
[2021-04-12] MEDS: ALBUMIN HUMAN 25% 25 GM/100 ML 100 ML IVPB ×2 (12:35→18:29)
[2021-04-12 16:58] LABS: Glucose Point of Care 331 mg/dl (65-105)
[2021-04-12] MEDS: CISATRACURIUM BESYLATE 200 MG in DEXTROSE 5% 80 ML 5.41 ML IV CONT (17:39)
[2021-04-12] MEDS: INSULIN GLARGINE (*BKC) 100 UNITS/ML 40 UNITS SUB-Q (19:54)
[2021-04-12] MEDS: REMDESIVIR 100 MG/NS 250 ML 100 MG/250 ML BAG 250 MG IVPB (20:21)
[2021-04-12] MEDS: MIDAZOLAM 100MG/NS 100ML(*CRX) 100 MG/100 ML BAG 6 MG IV CONT (20:30)
[2021-04-12 20:36] LABS: Glucose Point of Care 278 mg/dl (65-105)
--- NOTE | 2021-04-12 22:30 | PC.NURSE ---
04/12/21 2150 pt placed in prone position. O2 sat 98%.
[2021-04-13] VITALS (36 sets, daily range): BP systolic 98–124; BP diastolic 40–55; PULSE 100–156; RESP 25–28; TEMP 35.9–36.8; O2SAT 94–98
[2021-04-13] MEDS: ALBUMIN HUMAN 25% 25 GM/100 ML 100 ML IVPB ×4 (00:50→17:20)
[2021-04-13] MEDS: FENTANYL 2,500MCG/NS250ML(*CRX 2,500 MCG/250 ML BAG 20 MCG IV CONT ×2 (00:51→13:09)
[2021-04-13] MEDS: ENOXAPARIN 100 MG/ML SYRINGE 90 MG SUB-Q (00:52)
[2021-04-13] MEDS: INSULIN ASPART (*BKC) 100 UNITS/ML SUB-Q ×3 (00:54→08:59)
[2021-04-13 01:31] LABS: Glucose Point of Care 231 mg/dl (65-105)
[2021-04-13 04:21] LABS: Alanine Aminotransferase 52 U/L (4-50); Albumin Level 2.8 g/dL (3.5-5.1); Alkaline Phosphatase 101 U/L (38-126); Anion Gap 11 mmol/L (8-16); Aspartate Amino Transferase 65 U/L (17-59); Bilirubin,Total 0.3 mg/dL (0.2-1.3); Blood Urea Nitrogen 50 mg/dL (9-20); Calcium 7.3 mg/dL (8.4-10.2); Carbon Dioxide 23 mmol/L (22-30); Chloride 98 mmol/L (98-107); Estimated CRCL calculation 35 ml/min; Estimated Glomerular Filt Rate 33; Glucose 210 mg/dL (65-110); Lactate Dehydrogenase 639 U/L (313-618); Phosphorus 5.6 mg/dL (2.5-4.5); Potassium 4.3 mmol/L (3.4-5.0); Sodium 132 mmol/L (137-145)
[2021-04-13 04:40] LABS: Alveolar/Arterial O2 Gradient 411.7 mmHg; Base Excess ABG -2.7 mEq/l (+/-2.0); Carboxyhemoglobin 0.3 % THb (0-2.0); Fractional Inspired Oxygen 80 %; Methemoglobin ABG 1.7 %THb (0-1.5); Oxygen Content ABG 13.3 %vol (16.0-22.0); Oxygen Saturation ABG 94.3 % (95.0-100.0); Oxyhemoglobin 93.1 % THb (90.0-100.0); PO2 ABG 87.7 mmHg (80.0-100.0); Reduced Hemoglobin 4.9 %THb (0-5.0); Total Hemoglobin 10.1 g/dL (12.0-18.0)
[2021-04-13 04:44] LABS: Device VENTILATOR; Modified Allen's Test Unable to perform; PCO2 ABG 67.6 mmHg (35.0-45.0); Site Drawn RIGHT RADIAL; pH ABG 7.203 (7.350-7.450)
[2021-04-13 04:45] LABS: Arterial Blood Gas PEEP 18 cmH2O; Arterial Blood Gas Tidal Volume 370 ml; Arterial Blood Gas Vent Mode CMV; Arterial Blood Gas Ventilator rate 25 /MIN
[2021-04-13] MEDS: CENTRAL LINE FLUSH 10 ML IV PUSH ×4 (06:00→20:31)
[2021-04-13 06:11] LABS: Glucose Point of Care 227 mg/dl (65-105)
[2021-04-13 06:37] LABS: Basophils Absolute Auto 0.1 K/mm3 (0.0-0.1); Basophils Percent Auto 0.2 % (0.2-1.2); Eosinophils Absolute Auto 0.2 K/mm3 (0-0.3); Eosinophils Percent Auto 0.6 % (0-4.4); Hemoglobin 8.6 g/dL (14.0-18.0); Immature Granulocyte Absolute 0.89 K/mm3 (0.00-0.031); Immature Granulocyte Percent A 3.2 % (0-0.5); Immature Platelet Fraction Pct 10.8 % (0.9-11.2); Lymphocytes Percent Auto 2.5 % (18.3-44.2); Mean Corpuscular HGB Conc 30.7 g/dl (32-36); Mean Corpuscular Volume 87.8 fl (80-100); Mean Platelet Volume 11.8 fl (7.4-10.4); Monocytes Percent Auto 3.5 % (2.6-8.5); Neutrophils Absolute Auto 25.1 K/mm3 (1.3-6.7); Platelet Count Result 146 k/mm3 (150-375); Red Blood Count 3.19 M/mm3 (4.6-6.20); Red Cell Distribution Width 14.1 % (11.5-14.5); White Blood Count 27.9 K/mm3 (4.5-10.0)
[2021-04-13] MEDS: SODIUM BICARBONATE 8.4% 50 MEQ/50 ML SYRINGE 100 MEQ IV PUSH (06:56)
[2021-04-13 07:41] LABS: Glucose Point of Care 201 mg/dl (65-105)
[2021-04-13] MEDS: INSULIN GLARGINE (*BKC) 100 UNITS/ML 50 UNITS SUB-Q ×2 (08:59→20:46)
[2021-04-13] MEDS: DAPSONE 25 MG TABLET 50 MG PO ×2 (09:04→18:07)
[2021-04-13] MEDS: PRAVASTATIN SODIUM 20 MG TABLET 40 MG PO (09:04)
[2021-04-13] MEDS: FENOFIBRATE 160 MG TABLET PO (09:04)
[2021-04-13] MEDS: PANTOPRAZOLE SODIUM IV 40 MG VIAL IV PUSH ×2 (09:04→20:31)
[2021-04-13] MEDS: MINERAL OIL/WHITE PETROLATUM OINTMENT 1 APPLIC EACH EYE ×2 (09:05→20:30)
[2021-04-13 10:00] LABS: Hemoglobin 8.4 g/dL (14.0-18.0); Immature Platelet Fraction Pct 11.1 % (0.9-11.2); Mean Corpuscular HGB Conc 31.1 g/dl (32-36); Mean Corpuscular Hemoglobin 26.9 pg (26-34); Mean Corpuscular Volume 86.5 fl (80-100); Mean Platelet Volume 10.9 fl (7.4-10.4); Platelet Count Result 142 k/mm3 (150-375); Red Blood Count 3.12 M/mm3 (4.6-6.20); Red Cell Distribution Width 13.9 % (11.5-14.5)
[2021-04-13] MEDS: MIDAZOLAM 100MG/NS 100ML(*CRX) 100 MG/100 ML BAG 8 MG IV CONT (11:59)
[2021-04-13] MEDS: METOPROLOL TARTRATE INJ 5 MG/5 ML VIAL IV PUSH (12:02)
--- NOTE | 2021-04-13 12:10 | PCFNICU ---
ICU Rounding Note: Pt current nutrition is Glucerna 1.2 at 50 ml/hr over 22 hours. Last recorded weight is 97.5 kg, up from 90.8 kg on admit. Bowel Motility:+BM reported 04/07-Spoke with MD regarding BM. Labs Reviewed:PO4 5.6,BUN 50, Cr 2.5,Glu 210,Alb 2.8,Na 132, Hgb 8.6,Hct 28.0 Meds Noted:Versed, Fentanyl, Lantus, Novolog, Vancomycin, Remdesivir, Protonix, Lovenox. Skin:WNL Additional Notes:Patient remains on mechanical vent and tube feedings of Glucerna 1.2 at 50 ml/hr, 250 residual reported today. Discussed with MD starting Reglan and Miralax for Bowel Motility. Free water flush 30 ml q 4 hours. Recommending goal rate at 70 ml/hr over 22 hours. Following daily in ICU rounds. Will monitor labs, medications, wt, and tube feeding tolerance every Saturday and Saturday.
[2021-04-13 12:11] LABS: Glucose Point of Care 169 mg/dl (65-105)
[2021-04-13] MEDS: CISATRACURIUM BESYLATE 200 MG in DEXTROSE 5% 80 ML 5.41 ML IV CONT (13:08)
--- NOTE | 2021-04-13 13:25 | WPDINTPN ---
Progress Note: A&P Assessment and Plan (1) Acute respiratory failure with hypoxia: Code(s): J96.01 - Acute respiratory failure with hypoxia Status: Acute Assessment and Plan: Acute Respiratory failure secondary to COVID-19 pneumonia but his history of HIV makes it a bit more complicated. He has been on Airvo and BiPAP prior to intubation 04/11 intubated hand decorator due to worsening hypoxia despite 100% FiO2 on BiPAP Continues to be on 100% FiO2 and 15 of PEEP. Will increase PEEP to 18 Chest x-ray reviewed Will trial supine position and see if patient tolerates but otherwise will continue daily prone ventilation ABG reviewed. Increase rate to [address] findings appear consistent with COVID 19 pneumonia hence treatment for other etiologies like PCP or CMV etc was not pursued. CMV PCR, Influenza, urine pneumococcal and Legionella, CMV DNA quantitative PCR, urine Histoplasma are negative. Others are pending Since he is now intubated, if his oxygenation improves to a reasonable level will consider will consider BAL but patient too unstable and hypoxic at this time for bronchoscopy Since [facility] does not have infectious disease specialist I have tried to transfer patient to a facility with infectious disease consultation available. I have called [facility] and provided patient's information since patient was admitted there in the past. They have him on their wait list which was confirmed again today 04/11 IMPRESSION: 1. Diffuse lung disease, moderate to severe in the lower lung zones. In a patient with HIV, atypical pneumonia would be a likely consideration however given patient's positive COVID 19 T, findings most likely represent COVID 19 pneumonia and/or pulmonary edema with or without areas of pulmonary hemorrhage. 2. No central pulmonary embolus identified, sensitivity limited by respiratory motion artifact. (2) 2019 novel coronavirus-infected pneumonia (NCIP): Code(s): U07.1 - COVID-19; J12.82 - Pneumonia due to coronavirus disease 2019 Status: Acute Assessment and Plan: SARS-CoV-2 PCR positive Patient is in Airborne, Droplet and Contact Isolation Patient has completed 10 day course of dexamethasone and remdesivir (04/12) Convalescent plasma therapy was offered to patient by Dr. Swartz but patient refused Patient has completed a 7 day empiric antibiotics course with vancomycin azithromycin and cefepime. All his cultures have been negative Monitor inflammatory markers which are improving Case discussed with Dr. Swartz on admission and we discussed options of tocilizumab or Barcitinib able but considering patient HIV disease with immunosuppression, at this time we will hold concerning high risk for secondary infections (3) HIV (human immunodeficiency virus infection): Code(s): B20 - Human immunodeficiency virus [HIV] disease Status: Acute Assessment and Plan: Patient is on Biktarvy and has not been on any medications for secondary prophylaxis Reviewed records from patient's outpatient clinic in [place]. He refused COVID vaccine, hep B immunization is complete. He had AIDS diagnosis in April of 2013 and has been on anti retroviral therapy since July of 2013. His last HIV RNA PCR on 02/12 was undetectable, creatinine was 1.6, QuantiFERON gold was negative RPR is negative CD4 count was 362. Note mentions noncompliance with ART therapy by missing lot of doses Continue his anti-retroviral therapy at this time His CD4 count came back positive 98 which could be acute suppression from COVID-19 Continue PJP prophylaxis with dapsone as patient has allergy to sulfa. Patient does not remember the name of the drug he took but he states that he was unable to breathe and states that he is allergic to sulfa drugs. (4) Diabetes mellitus: Code(s): E11.9 - Type 2 diabetes mellitus without complications Status: Acute Assessment and Plan: Sliding scale ins
[2021-04-13 14:45] LABS: Hematocrit 24.8 % (42.0-52.0); Hemoglobin 7.7 g/dL (14.0-18.0); Immature Platelet Fraction Pct 11.1 % (0.9-11.2); Mean Corpuscular Hemoglobin 26.9 pg (26-34); Mean Corpuscular Volume 86.7 fl (80-100); Mean Platelet Volume 11.6 fl (7.4-10.4); Platelet Count Result 134 k/mm3 (150-375); Red Blood Count 2.86 M/mm3 (4.6-6.20); Red Cell Distribution Width 13.8 % (11.5-14.5); White Blood Count 24.9 K/mm3 (4.5-10.0)
[2021-04-13 16:22] LABS: Glucose Point of Care 146 mg/dl (65-105)
[2021-04-13] MEDS: METOCLOPRAMIDE HCL INJ 10 MG/2 ML VIAL IV PUSH (18:07)
--- NOTE | 2021-04-13 18:15 | WPDPROCEDUR ---
Procedures Central Line Placement Left Femoral: Central Line Date: 04/13/21 Central Line Time: 18:15 Performed Emergently - Given emergent patient condition, temporal constraints may have precluded informed consent.: Yes Time Out Performed: Yes Patient Position: supine Patient placed on monitor/pulse ox: Yes Provider Prep: mask, sterile gown, sterile gloves, Max. sterile barrier precautions, cap and hand hygiene with conventional soap/water or alcohol based hand rub Central line prep: 2% Chlorhexidine scrub Local anesthesia used: lidocaine 1% Amount of anesthesia used (ml): 3 Sterile US Technique with sterile gel/sterile probe covers: Yes Central line lumen inserted: triple [place]: 7 Length (cm): 20 Post Procedure: sutured in place, good blood return, all ports aspirated, flushed, capped, transparent dressing, antimicrobial product and aseptic technique maintained throughout procedure Post procedure x-ray: other (n/a with femoral placement) Patient tolerated procedure: well Complications: none
[2021-04-13] MEDS: NOREPINEPHRINE 8 MG/D5W 250 ML 8 MG/250 ML BAG 3.75 MG IV CONT (18:32)
[2021-04-13 19:03] LABS: Hematocrit 23.3 % (42.0-52.0); Hemoglobin 7.3 g/dL (14.0-18.0); Mean Corpuscular HGB Conc 31.3 g/dl (32-36); Mean Corpuscular Hemoglobin 27.1 pg (26-34); Mean Corpuscular Volume 86.6 fl (80-100); Mean Platelet Volume 11.3 fl (7.4-10.4); Platelet Count Result 115 k/mm3 (150-375); Red Blood Count 2.69 M/mm3 (4.6-6.20); White Blood Count 21.3 K/mm3 (4.5-10.0)
[2021-04-13 22:35] LABS: Glucose Point of Care 150 mg/dl (65-105)
[2021-04-14] VITALS (35 sets, daily range): BP systolic 86–146; BP diastolic 44–68; PULSE 102–126; RESP 28–31; TEMP 35.8–36.9; O2SAT 88–95
[2021-04-14] MEDS: METOCLOPRAMIDE HCL INJ 10 MG/2 ML VIAL IV PUSH ×4 (00:03→17:56)
[2021-04-14] MEDS: MIDAZOLAM 100MG/NS 100ML(*CRX) 100 MG/100 ML BAG 8 MG IV CONT ×2 (00:12→12:17)
[2021-04-14 00:16] LABS: Glucose Point of Care 178 mg/dl (65-105)
[2021-04-14] MEDS: FENTANYL 2,500MCG/NS250ML(*CRX 2,500 MCG/250 ML BAG 20 MCG IV CONT ×2 (01:35→15:00)
[2021-04-14] MEDS: ALBUMIN HUMAN 25% 25 GM/100 ML 100 ML IVPB ×4 (02:00→17:55)
[2021-04-14 04:31] LABS: Base Excess ABG -4.9 mEq/l (+/-2.0); Carboxyhemoglobin 0.1 % THb (0-2.0); Fractional Inspired Oxygen 80 %; HCO3 ABG 23.9 mEq/l (22.0-26.0); Methemoglobin ABG 1.8 %THb (0-1.5); Oxygen Content ABG 15.8 %vol (16.0-22.0); Oxygen Saturation ABG 93.3 % (95.0-100.0); Oxyhemoglobin 92.6 % THb (90.0-100.0); PO2 ABG 81.8 mmHg (80.0-100.0); PO2 FiO2 Ratio Arterial Blood 1.02 %; Reduced Hemoglobin 5.5 %THb (0-5.0); Total Hemoglobin 12.1 g/dL (12.0-18.0)
[2021-04-14 04:33] LABS: pH ABG 7.201 (7.350-7.450)
[2021-04-14 04:34] LABS: Arterial Blood Gas PEEP 18 cmH2O; Arterial Blood Gas Vent Mode CMV; Arterial Blood Gas Ventilator rate 28 /MIN; Device VENTILATOR; Modified Allen's Test Pass; PCO2 ABG 62.5 mmHg (35.0-45.0); Site Drawn RIGHT RADIAL
[2021-04-14 04:35] LABS: Arterial Blood Gas Tidal Volume 370 ml
[2021-04-14 05:56] LABS: Basophils Absolute Auto 0.1 K/mm3 (0.0-0.1); Basophils Percent Auto 0.2 % (0.2-1.2); Eosinophils Absolute Auto 0.2 K/mm3 (0-0.3); Eosinophils Percent Auto 0.7 % (0-4.4); Hematocrit 27.9 % (42.0-52.0); Hemoglobin 8.8 g/dL (14.0-18.0); Immature Granulocyte Absolute 0.47 K/mm3 (0.00-0.031); Immature Granulocyte Percent A 1.8 % (0-0.5); Immature Platelet Fraction Pct 11.4 % (0.9-11.2); Lymphocytes Absolute Auto 0.64 K/mm3 (0.9-3.2); Lymphocytes Percent Auto 2.4 % (18.3-44.2); Mean Corpuscular HGB Conc 31.5 g/dl (32-36); Mean Corpuscular Volume 85.6 fl (80-100); Mean Platelet Volume 11.5 fl (7.4-10.4); Monocytes Absolute Auto 0.9 K/mm3 (0.1-0.6); Monocytes Percent Auto 3.2 % (2.6-8.5); Neutrophils Absolute Auto 24.6 K/mm3 (1.3-6.7); Neutrophils Percent Auto 91.7 % (45.5-73.1); Platelet Count Result 112 k/mm3 (150-375); Red Blood Count 3.26 M/mm3 (4.6-6.20); Red Cell Distribution Width 15.8 % (11.5-14.5); White Blood Count 26.8 K/mm3 (4.5-10.0)
[2021-04-14 06:16] LABS: Alanine Aminotransferase 275 U/L (4-50); Albumin Level 3.4 g/dL (3.5-5.1); Alkaline Phosphatase 111 U/L (38-126); Anion Gap 13 mmol/L (8-16); Aspartate Amino Transferase 446 U/L (17-59); Bilirubin,Total 0.8 mg/dL (0.2-1.3); Blood Urea Nitrogen 76 mg/dL (9-20); Calcium 7.7 mg/dL (8.4-10.2); Carbon Dioxide 28 mmol/L (22-30); Chloride 93 mmol/L (98-107); Estimated CRCL calculation 18 ml/min; Estimated Glomerular Filt Rate 15; Glucose 163 mg/dL (65-110); Magnesium 2.4 mg/dL (1.6-2.3); Phosphorus 6.9 mg/dL (2.5-4.5); Potassium 4.9 mmol/L (3.4-5.0); Sodium 134 mmol/L (137-145)
[2021-04-14] MEDS: CENTRAL LINE FLUSH 10 ML IV PUSH ×7 (06:51→21:21)
[2021-04-14] MEDS: CISATRACURIUM BESYLATE 200 MG in DEXTROSE 5% 80 ML 5.41 ML IV CONT (06:53)
[2021-04-14 07:17] LABS: Anisocytosis 1+ (NORMAL); Large Platelets Present; Platelet Estimate Decreased (Adequate)
[2021-04-14] MEDS: INSULIN GLARGINE (*BKC) 100 UNITS/ML 50 UNITS SUB-Q ×2 (09:00→21:19)
[2021-04-14] MEDS: polyethylene glycoL 3350 17 GM POWD.PACK PO (09:02)
[2021-04-14] MEDS: PANTOPRAZOLE SODIUM IV 40 MG VIAL IV PUSH ×2 (09:03→21:21)
[2021-04-14] MEDS: DAPSONE 25 MG TABLET 50 MG PO ×2 (09:04→16:11)
[2021-04-14] MEDS: MINERAL OIL/WHITE PETROLATUM OINTMENT 1 APPLIC EACH EYE ×2 (09:04→21:20)
[2021-04-14 10:16] LABS: Glucose Point of Care 137 mg/dl (65-105)
--- NOTE | 2021-04-14 11:03 | WPDINTPN ---
Progress Note: A&P Assessment and Plan (1) Acute respiratory failure with hypoxia: Code(s): J96.01 - Acute respiratory failure with hypoxia Status: Acute Assessment and Plan: Acute Respiratory failure secondary to COVID-19 pneumonia but his history of HIV makes it a bit more complicated. Failed Airvo and BiPAP prior to intubation 04/11 intubated Patient is on CMV mode of ventilation, peep of 18, 80% FiO2. Peak pressures in the 53-55 range -switched patient to pressure control ventilation, continue PEEP of 18, 80% FiO2 and increase rate to 30 -Chest x-ray and ABGs reviewed -will try to place patient in prone position His CT findings appear consistent with COVID 19 pneumonia hence treatment for other etiologies like PCP or CMV etc was not pursued. CMV PCR, Influenza, urine pneumococcal and Legionella, CMV DNA quantitative PCR, urine Histoplasma are negative. Others are pending Since he is now intubated, if his oxygenation improves to a reasonable level will consider will consider BAL but patient too unstable and hypoxic at this time for bronchoscopy Since [facility] does not have infectious disease specialist I have tried to transfer patient to a facility with infectious disease consultation available. I have called [facility] and provided patient's information since patient was admitted there in the past. They have him on their wait list which was confirmed again today 04/14/2021 CT chest: IMPRESSION: 1. Diffuse lung disease, moderate to severe in the lower lung zones. In a patient with HIV, atypical pneumonia would be a likely consideration however given patient's positive COVID 19 T, findings most likely represent COVID 19 pneumonia and/or pulmonary edema with or without areas of pulmonary hemorrhage. 2. No central pulmonary embolus identified, sensitivity limited by respiratory motion artifact. (2) 2019 novel coronavirus-infected pneumonia (NCIP): Code(s): U07.1 - COVID-19; J12.82 - Pneumonia due to coronavirus disease 2019 Status: Acute Assessment and Plan: SARS-CoV-2 PCR positive Patient is in Airborne, Droplet and Contact Isolation Patient has completed 10 day course of dexamethasone and remdesivir (04/12) Convalescent plasma therapy was offered to patient by Dr. Swartz but patient refused Patient has completed a 7 day empiric antibiotics course with vancomycin azithromycin and cefepime. All his cultures have been negative Monitor inflammatory markers which are improving Case discussed with Dr. Swartz on admission and we discussed options of tocilizumab or Barcitinib able but considering patient HIV disease with immunosuppression, at this time we will hold concerning high risk for secondary infections (3) HIV (human immunodeficiency virus infection): Code(s): B20 - Human immunodeficiency virus [HIV] disease Status: Acute Assessment and Plan: Patient is on Biktarvy and has not been on any medications for secondary prophylaxis Reviewed records from patient's outpatient clinic in [place]. He refused COVID vaccine, hep B immunization is complete. He had AIDS diagnosis in April of 2013 and has been on anti retroviral therapy since July of 2013. His last HIV RNA PCR on 02/12 was undetectable, creatinine was 1.6, QuantiFERON gold was negative RPR is negative CD4 count was 362. Note mentions noncompliance with ART therapy by missing lot of doses Continue his anti-retroviral therapy at this time His CD4 count came back positive 98 which could be acute suppression from COVID-19 Continue PJP prophylaxis with dapsone as patient has allergy to sulfa. Patient does not remember the name of the drug he took but he states that he was unable to breathe and states that he is allergic to sulfa drugs. (4) Diabetes mellitus: Code(s): E11.9 - Type 2 diabetes mellitus without complications Status: Acute Assessment and Plan: Sliding scale insulin and Lantu
--- NOTE | 2021-04-14 12:04 | PCNFU ---
Nutrition Follow-Up Complete: Inadequate oral intake related to ARF w/hypoxia and covid as evidenced by reported average intake of 44% Goal: Meet nutritional needs Patient is progressing towards goal. We will continue current goal. Pt current nutrition is Nepro at 50 ml/hr over 22 hours. Last recorded weight is 97.5 kg, up from 90.8 kg on admit. Bowel Motility:+BM reported 04/07 Labs Reviewed:PO4 6.9,Cr 4.9,BUN 76, Glu 163,ALb 3.4,Na 134, Hct 27.9,Hgb 8.8 Meds Noted: Miralax,Dulcolax Suppository, Reglan, Albuterol, Nimbex, Lovenox, Versed, Fentanyl, Novolog, Lantus, Vancomycin, Remdesivir. Skin: Left Arm-edematous, weeping. Additional Notes: Patient remains on mechanical vent and tube feedings of Glucerna 1.2 at 50 ml/hr. MD orders for tube feeding change to Nepro at 50 ml/hr over 22 hours due to elevated renal labs. Current tube feeding of Nepro will provide patient with 1980 kcals/89 gms protein/800 ml water. Free water flush 30 ml q 4 hours. Agree with diet orders. Will monitor labs, medications, wt, and reported intake every Saturday and Saturday.
[2021-04-14 12:24] LABS: Creatine Kinase 2268 U/L (55-170)
[2021-04-14 12:49] LABS: Glucose Point of Care 153 mg/dl (65-105)
--- NOTE | 2021-04-14 13:12 | PM.CNNEP ---
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 (2) Acute respiratory failure with hypoxia: Code(s): J96.01 - Acute respiratory failure with hypoxia Status: Acute Assessment and Plan: secondary to COVID-19 pneumonua complicated by immunosuppressed status with HIV intubated since 04/11/21 prone positioning as tolerated continue ventilator support (3) Pneumonia due to COVID-19 virus: Code(s): U07.1 - COVID-19; J12.82 - Pneumonia due to coronavirus disease 2019 Status: Acute Assessment and Plan: COVID-19 positive remains on isolation s/p course of remdesivir and steroids patient refused convalescent plasma therapy follow inflammatory markers holding tocilizumab or barcitinib therapy consider immunosuprresed status given known HIV disease (4) Hyperkalemia: Code(s): E87.5 - Hyperkalemia Status: Acute Assessment and Plan: due to YOLANDA in association with hyperglycemia doing better at this time s/p medical therapy (5) DVT (deep venous thrombosis): Code(s): I82.409 - Acute embolism and thrombosis of unspecified deep veins of unspecified lower extremity Status: Acute Assessment and Plan: associated with PICC attempted femoral arterial line placement le to hematoma as well holding anticoagulation due to drop in H/H conitnue supportive therapy (6) Anemia: Code(s): D64.9 - Anemia, unspecified Status: Acute Assessment and Plan: dropping H/H noted no obvious signs of bleeding on PPI unstable for imaging or EG transfuse per protocol follow Hgb (7) Diabetes mellitus: Code(s): E11.9 - Type 2 diabetes mellitus without complications Status: Chronic Assessment and Plan: follow accuchecks on SSI and Lantus Discussed case with Dr. Cleveland. Will continue to follow. History of Present Illness Reason for Consult Consult date: 04/14/21 Chief Complaint Chief complaint: acute respiratory failure with hypoxia, covid + History of Present Illness Narrative: All the history at that I have obtained is from review of the electronic medical record as well as discussion with the physician/ nurses involved in his care as the patient is unable to provide me with any history as he is currently intubated and on mechanical ventilation. The patient is a 50-year-old male with extensive past medical history as outlined below who presented to [facility] Emergency room due to shortness of breath. Apparently, the shortness of breath has been going for about a week if not longer. As the symptoms have progressively gotten worse, the patient opted to come to the emergency room for further evaluation. Workup and evaluation emergency room demonstrated the patient to be hypoxic at 88% on room air in association with a low-grade fever. Supplemental oxygen was applied which did improve his O2 saturations but did not really improve his shortness of breath he was subsequently switched over to BiPAP support which did seem to help to some degree. Routine blood tests were significant for an elevated creatinine of 1.5 and an elevated BUN of 25 mild leukocytosis of 10.3 and a D-dimer that was positive as well. A CT angiogram was done which demonstrated diffuse interstitial alveolar infiltrates with consolidation in the lower lobes and patchy areas in the upper lobes. He was subsequently transferred to the ICU on BiPAP for further evaluation and therapy. Since his admission, his overall clinical
--- NOTE | 2021-04-14 13:12 | P.CONNP_ITS ---
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 (2) Acute respiratory failure with hypoxia: Code(s): J96.01 - Acute respiratory failure with hypoxia Status: Acute Assessment and Plan: * secondary to COVID-19 pneumonua * complicated by immunosuppressed status with HIV * intubated since 04/11/21 * prone positioning as tolerated * continue ventilator support (3) Pneumonia due to COVID-19 virus: Code(s): U07.1 - COVID-19; J12.82 - Pneumonia due to coronavirus disease 2018 Status: Acute Assessment and Plan: * COVID-19 positive * remains on isolation * s/p course of remdesivir and steroids * patient refused convalescent plasma therapy * follow inflammatory markers * holding tocilizumab or barcitinib therapy consider immunosuprresed status given known HIV disease (4) Hyperkalemia: Code(s): E87.5 - Hyperkalemia Status: Acute Assessment and Plan: * due to YOLANDA in association with hyperglycemia * doing better at this time s/p medical therapy (5) DVT (deep venous thrombosis): Code(s): I82.409 - Acute embolism and thrombosis of unspecified deep veins of unspecified lower extremity Status: Acute Assessment and Plan: * associated with PICC * attempted femoral arterial line placement le to hematoma as well * holding anticoagulation due to drop in H/H * conitnue supportive therapy (6) Anemia: Code(s): D64.9 - Anemia, unspecified Status: Acute Assessment and Plan: * dropping H/H noted * no obvious signs of bleeding * on PPI * unstable for imaging or EG * transfuse per protocol * follow Hgb (7) Diabetes mellitus: Code(s): E11.9 - Type 2 diabetes mellitus without complications Status: Chronic Assessment and Plan: * follow accuchecks * on SSI and Lantus Discussed case with Dr. Cleveland. Will continue to follow. History of Present Illness Reason for Consult Consult date: 04/14/21 Chief Complaint Chief complaint: acute respiratory failure with hypoxia, covid + History of Present Illness Narrative: All the history at that I have obtained is from review of the electronic medical record as well as discussion with the physician/ nurses involved in his care as the patient is unable to provide me with any history as he is currently intubated and on mechanical ventilation. The patient is a 50-year-old male with extensive past medical history as outlined below who presented to [facility] Emergency room due to shortn ess of breath. Apparently, the shortness of breath has been going for about a week if not longer. As the symptoms have progressively gotten worse, the patient opted to come to the emergency room for further evaluation. Workup and evaluation emergency room demonstrated the patient to be hypoxic at 88% on room air in association with a low-grade fever. Supplemental oxygen was applied which did improve his O2 saturations but did not really improve his shortness of breath he was subsequently switched over to BiPAP support which did seem to help to some deg
[2021-04-14] MEDS: EPOPROSTENOL SODIUM 0.5 MG VIAL 1 MG INHALATION ×2 (15:10→20:45)
[2021-04-14 15:25] LABS: Creatinine Urine 173.2 mg/dL
[2021-04-14 15:35] LABS: Potassium Urine Random 41.1 meq/L; Sodium Urine Random 18 meq/L
[2021-04-14 16:03] LABS: Eosinophil Urine None Seen % (None Seen)
[2021-04-14 18:07] LABS: Glucose Point of Care 148 mg/dl (65-105)
[2021-04-14 21:36] LABS: Glucose Point of Care 158 mg/dl (65-105)
[2021-04-15] VITALS (58 sets, daily range): BP systolic 84–144; BP diastolic 44–79; PULSE 92–128; RESP 30; TEMP 35.3–36.9; O2SAT 77–89
[2021-04-15] MEDS: ALBUMIN HUMAN 25% 25 GM/100 ML 100 ML IVPB ×5 (00:41→23:29)
[2021-04-15] MEDS: METOCLOPRAMIDE HCL INJ 10 MG/2 ML VIAL IV PUSH ×5 (00:41→23:27)
[2021-04-15 01:28] LABS: Glucose Point of Care 124 mg/dl (65-105)
[2021-04-15] MEDS: FENTANYL 2,500MCG/NS250ML(*CRX 2,500 MCG/250 ML BAG 20 MCG IV CONT ×2 (02:20→15:37)
[2021-04-15] MEDS: MIDAZOLAM 100MG/NS 100ML(*CRX) 100 MG/100 ML BAG 8 MG IV CONT ×2 (02:22→14:29)
[2021-04-15] MEDS: EPOPROSTENOL SODIUM 0.5 MG VIAL 1 MG INHALATION ×4 (03:02→21:22)
[2021-04-15 04:25] LABS: Basophils Percent Auto 0.2 % (0.2-1.2); Eosinophils Absolute Auto 0.1 K/mm3 (0-0.3); Eosinophils Percent Auto 0.5 % (0-4.4); Hematocrit 24.4 % (42.0-52.0); Hemoglobin 7.9 g/dL (14.0-18.0); Immature Granulocyte Percent A 1.5 % (0-0.5); Lymphocytes Absolute Auto 0.49 K/mm3 (0.9-3.2); Lymphocytes Percent Auto 1.9 % (18.3-44.2); Mean Corpuscular HGB Conc 32.4 g/dl (32-36); Mean Corpuscular Hemoglobin 26.8 pg (26-34); Mean Corpuscular Volume 82.7 fl (80-100); Mean Platelet Volume 12.4 fl (7.4-10.4); Monocytes Absolute Auto 0.8 K/mm3 (0.1-0.6); Monocytes Percent Auto 3.1 % (2.6-8.5); Neutrophils Absolute Auto 24.1 K/mm3 (1.3-6.7); Neutrophils Percent Auto 92.8 % (45.5-73.1); Platelet Count Result 103 k/mm3 (150-375); Red Blood Count 2.95 M/mm3 (4.6-6.20); Red Cell Distribution Width 16.1 % (11.5-14.5); White Blood Count 25.9 K/mm3 (4.5-10.0)
[2021-04-15 04:32] LABS: Albumin Level 4.2 g/dL (3.5-5.1); Alkaline Phosphatase 147 U/L (38-126); Anion Gap 15 mmol/L (8-16); Bilirubin,Total 1.6 mg/dL (0.2-1.3); Blood Urea Nitrogen 96 mg/dL (9-20); Calcium 7.8 mg/dL (8.4-10.2); Carbon Dioxide 26 mmol/L (22-30); Chloride 94 mmol/L (98-107); Glucose 127 mg/dL (65-110); Magnesium 2.6 mg/dL (1.6-2.3); Phosphorus 8.9 mg/dL (2.5-4.5); Potassium 5.2 mmol/L (3.4-5.0); Sodium 135 mmol/L (137-145)
[2021-04-15 04:59] LABS: Alveolar/Arterial O2 Gradient 557.3 mmHg; Carboxyhemoglobin 0.3 % THb (0-2.0); Fractional Inspired Oxygen 100 %; HCO3 ABG 24.8 mEq/l (22.0-26.0); Methemoglobin ABG 2.6 %THb (0-1.5); Oxygen Content ABG 11.4 %vol (16.0-22.0); PO2 ABG 69.2 mmHg (80.0-100.0); PO2 FiO2 Ratio Arterial Blood 0.69 %; Reduced Hemoglobin 12.5 %THb (0-5.0); Total Hemoglobin 9.5 g/dL (12.0-18.0)
[2021-04-15 05:02] LABS: pH ABG 7.075 (7.350-7.450)
[2021-04-15 05:03] LABS: PCO2 ABG 86.5 mmHg (35.0-45.0)
[2021-04-15 05:04] LABS: Oxygen Saturation ABG 84.8 % (95.0-100.0)
[2021-04-15 05:05] LABS: Device VENTILATOR; Modified Allen's Test Pass; Oxyhemoglobin 84.6 % THb (90.0-100.0); Site Drawn LEFT RADIAL
[2021-04-15 05:06] LABS: Arterial Blood Gas Vent Mode PRESSURE CONTROL; Arterial Blood Gas Ventilator rate 30 /MIN
[2021-04-15 05:07] LABS: Arterial Blood Gas PEEP 20 cmH2O; Peak Inspiratory Pressure 28 cmH2O
[2021-04-15 05:11] LABS: Estimated CRCL calculation 14 ml/min; Estimated Glomerular Filt Rate 11
[2021-04-15 05:40] LABS: Alanine Aminotransferase 1006 U/L (4-50); Aspartate Amino Transferase 1359 U/L (17-59); Lactate Dehydrogenase 4160 U/L (313-618)
[2021-04-15 06:16] LABS: Platelet Estimate Adequate (Adequate)
[2021-04-15 06:17] LABS: Anisocytosis 1+ (NORMAL); Ovalocytes 1+ (NORMAL); Poikilocytosis 1+ (NORMAL); Target Cells 1+ (NORMAL)
--- NOTE | 2021-04-15 06:20 | PC.NURSE ---
Spoke with patient father Edis Gonzales about current state. Pt maxed on Flolan, maxed vent settings with oxygen saturation of 78 and dropping, pH 7.0, Creatinine 6.2, and heart rate tachy. Dr Cleveland has been notified of current O2 sat and labs and has no further suggestions. Explained to father that patient is actively dying on the vent and there is nothing else we can do. Explained current labs, kidney failure, and inability of lungs to support the heart and other organs at this point. Explained comfort measures and DNR status. Father asked this nurse to explain what is going on. Clarified what he wanted explained and her stated he was a senior citizen and he wanted this nurse to explain it all again. Father asked if patient was at the point of no return and he was told yes. Father states he can not make this decision and he needs to speak to someone. Asked again if he would be agreeable to a DNR so the the pt doesn't go through the trauma of compressions and father states he is praying. Father asks that we call him if the patient takes a turn for the worse . This nurse explained the next call would mean that his heart has stopped and he may have . Father states understanding. Pt is still a full code with O2 sat of 69.
[2021-04-15] MEDS: CISATRACURIUM BESYLATE 200 MG in DEXTROSE 5% 80 ML 5.41 ML IV CONT (06:34)
[2021-04-15] MEDS: CENTRAL LINE FLUSH 10 ML IV PUSH ×7 (06:37→20:30)
[2021-04-15 07:28] LABS: Ferritin > 2000.00 ng/mL (17.9-464)
[2021-04-15 07:42] LABS: Glucose Point of Care 216 mg/dl (65-105)
--- NOTE | 2021-04-15 07:47 | PC.NURSE ---
Spoke with patient's father Rona Gonzales regarding patient decline overnight. Patient remains a full code.
[2021-04-15] MEDS: PANTOPRAZOLE SODIUM IV 40 MG VIAL IV PUSH ×2 (08:10→20:29)
[2021-04-15] MEDS: INSULIN GLARGINE (*BKC) 100 UNITS/ML 50 UNITS SUB-Q ×2 (08:10→20:26)
[2021-04-15] MEDS: MINERAL OIL/WHITE PETROLATUM OINTMENT 1 APPLIC EACH EYE ×2 (08:10→20:29)
[2021-04-15] MEDS: DAPSONE 25 MG TABLET 50 MG PO ×2 (08:11→16:44)
[2021-04-15] MEDS: INSULIN ASPART (*BKC) 100 UNITS/ML SUB-Q ×4 (08:11→23:26)
--- NOTE | 2021-04-15 09:37 | WPDINTPN ---
Progress Note: A&P Assessment and Plan (1) Acute respiratory failure with hypoxia: Code(s): J96.01 - Acute respiratory failure with hypoxia Status: Acute Assessment and Plan: Acute Respiratory failure secondary to COVID-19 pneumonia but his history of HIV makes it a bit more complicated. Failed Airvo and BiPAP prior to intubation 04/11 intubated -04/14/2021: Patient started desaturating at night in the 60- 70%, peep was increased to 20, patient was placed in prone position, started on Flolan (04/14/21). Bedside RN updated the father of the overnight and early childhood assistant events. -04/15/2021: Elevated peak pressures in the mid 50s, ventilator was adjusted, patient is been on PCV mode, 100% FiO2, peep of 18, rate of 30 -chest x-ray this morning shows increased severe diffuse bi lateral pulmonary infiltrates - ABG with respiratory acidosis - continue patient in prone positioning His CT findings appear consistent with COVID 19 pneumonia hence treatment for other etiologies like PCP or CMV etc was not pursued. CMV PCR, Influenza, urine pneumococcal and Legionella, CMV DNA quantitative PCR, urine Histoplasma are negative. Others are pending Since he is now intubated, if his oxygenation improves to a reasonable level will consider will consider BAL but patient too unstable and hypoxic at this time for bronchoscopy Since [facility] does not have infectious disease specialist I have tried to transfer patient to a facility with infectious disease consultation available. I have called [facility] and provided patient's information since patient was admitted there in the past. They have him on their wait list which was confirmed again today 04/14/2021 CT chest: IMPRESSION: 1. Diffuse lung disease, moderate to severe in the lower lung zones. In a patient with HIV, atypical pneumonia would be a likely consideration however given patient's positive COVID 19 T, findings most likely represent COVID 19 pneumonia and/or pulmonary edema with or without areas of pulmonary hemorrhage. 2. No central pulmonary embolus identified, sensitivity limited by respiratory motion artifact. (2) 2019 novel coronavirus-infected pneumonia (NCIP): Code(s): U07.1 - COVID-19; J12.82 - Pneumonia due to coronavirus disease 2019 Status: Acute Assessment and Plan: SARS-CoV-2 PCR positive Patient is in Airborne, Droplet and Contact Isolation Patient has completed 10 day course of dexamethasone and remdesivir (04/12) Convalescent plasma therapy was offered to patient by Dr. Swartz but patient refused Patient has completed a 7 day empiric antibiotics course with vancomycin azithromycin and cefepime. All his cultures have been negative Monitor inflammatory markers which are improving Case discussed with Dr. Swartz on admission and we discussed options of tocilizumab or Barcitinib able but considering patient HIV disease with immunosuppression, at this time we will hold concerning high risk for secondary infections (3) HIV (human immunodeficiency virus infection): Code(s): B20 - Human immunodeficiency virus [HIV] disease Status: Acute Assessment and Plan: Patient is on Biktarvy and has not been on any medications for secondary prophylaxis Reviewed records from patient's outpatient clinic in [place]. He refused COVID vaccine, hep B immunization is complete. He had AIDS diagnosis in April of 2013 and has been on anti retroviral therapy since July of 2013. His last HIV RNA PCR on 02/12 was undetectable, creatinine was 1.6, QuantiFERON gold was negative RPR is negative CD4 count was 362. Note mentions noncompliance with ART therapy by missing lot of doses Continue his anti-retroviral therapy at this time His CD4 count came back positive 98 which could be acute suppression from COVID-19 Continue PJP prophylaxis with dapsone, as patient has allergy to sulfa. Patient does not remember the name of the drug he took but
[2021-04-15] MEDS: NOREPINEPHRINE 8 MG/D5W 250 ML 8 MG/250 ML BAG 22.5 MG IV CONT (11:40)
[2021-04-15] MEDS: SODIUM POLYSTYRENE SULFONONATE 15 GM/60 ML BTL 30 GM PO (11:42)
[2021-04-15] MEDS: DEXTROSE 50% 25 GM/50 ML SYRINGE IV PUSH (11:42)
[2021-04-15] MEDS: SODIUM BICARBONATE 8.4% 50 MEQ/50 ML SYRINGE IV PUSH (11:42)
[2021-04-15] MEDS: INSULIN HUMAN REGULAR (*BKC) 100 UNITS/ML 10 UNITS IV PUSH ×2 (11:47→14:32)
--- NOTE | 2021-04-15 11:55 | PM.PNNEP ---
Progress Note: A&P Assessment and Plan (1) Acute kidney injury: Code(s): N17.9 - Acute kidney failure, unspecified Status: Acute Assessment and Plan: due to ATN with multifactorial etiology COVID-19 infection hypotension hypoxia hemodynamic instability/shock evaluation to date: renal U/S normal urine electrolytes are non-prerenal CPK is elevated (> 2000) -- from upper extremities? 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 - this is assuming he would even tolerate it although I questions if it would make a difference given his multitude of issues/problems at [facility] time (2) Acute respiratory failure with hypoxia: Code(s): J96.01 - Acute respiratory failure with hypoxia Status: Acute Assessment and Plan: secondary to COVID-19 pneumonua complicated by immunosuppressed status with HIV intubated since 04/11/21 prone positioning as tolerated continue ventilator support (3) Pneumonia due to COVID-19 virus: Code(s): U07.1 - COVID-19; J12.82 - Pneumonia due to coronavirus disease 2018 Status: Acute Assessment and Plan: COVID-19 positive remains on isolation s/p course of remdesivir and steroids patient refused convalescent plasma therapy follow inflammatory markers holding tocilizumab or barcitinib therapy consider immunosuprresed status given known HIV disease (4) Hyperkalemia: Code(s): E87.5 - Hyperkalemia Status: Acute Assessment and Plan: due to YOLANDA in association with hyperglycemia doing better at this time s/p medical therapy (5) DVT (deep venous thrombosis): Code(s): I82.409 - Acute embolism and thrombosis of unspecified deep veins of unspecified lower extremity Status: Acute Assessment and Plan: associated with PICC attempted femoral arterial line placement le to hematoma as well holding anticoagulation due to drop in H/H conitnue supportive therapy (6) Anemia: Code(s): D64.9 - Anemia, unspecified Status: Acute Assessment and Plan: dropping H/H noted no obvious signs of bleeding on PPI unstable for imaging or EG transfuse per protocol follow Hgb (7) Diabetes mellitus: Code(s): E11.9 - Type 2 diabetes mellitus without complications Status: Chronic Assessment and Plan: follow accuchecks on SSI and Lantus Discussed case with Dr. Cleveland. Will continue to follow. Subjective Date/time seen: 04/15/21 11:55 His overall condition continues to deteriorate -- remains intubated/sedated/paralyzed and on full mechanical ventilator support; ongoing issues with hypoxia and desaturations despite high peep and 100% FiO2; continues with prone positioning as well; continues to require vasopressor support to maintain MAP/blood pressure as well. Exam Narrative: General: ill appearing male intubated/sedated/paralyzed in prone positioning Heart: tachycardic, normal S1 and S2; no rub Lungs: coarse breath sounds throughout Abdomen: soft, nontender, nondistended, positive bowel sounds Extremities: no cyanosis or clubbing; bilateral upper extremity noted Skin: taut in UEs Objective Data Vital Signs Vital Signs: Vital Signs Temp Pulse Resp BP Pulse Ox 04/15/21 11:55 36.9 C 117 H 30 H 94/54 L 77 L 04/15/21 11:40 92/58 L 04/15/21 10:39 114 H 30 H 79 L 04/15/21 10:37 114 H 79 L 04/15/21 10:00 111 H 30 H 96/56 L 80 L 04/15/21 09:03 98 30 H 78 L 04/15/21 09:02 88/49 L 04/15/21 08:23 122 H 30 H 85 L 04/15/21 08:21 122 H 85 L 04/15/21 08:00 36.4 C 116 H 30 H 99/54 L 78 L 04/15/21 07:51 84/44 L 04/15/21 06:34 30 H 04/15/21 06:00 118 H 30 H 104/50 L 79 L 04/15/21 04:54 128 H 30 H 04/15/21 04:51 30 H 04/15/21 04:39 125 H 30 H 88 L 04/15/21 04:00 35.9 C L 117 H 30 H 91/79 L 84
--- NOTE | 2021-04-15 11:55 | P.PNNP_ITS ---
Progress Note: A&P Assessment and Plan (1) Acute kidney injury: Code(s): N17.9 - Acute kidney failure, unspecified Status: Acute Assessment and Plan: * due to ATN with multifactorial etiology * COVID-19 infection * hypotension * hypoxia * hemodynamic instability/shock * evaluation to date: * renal U/S normal * urine electrolytes are non-prerenal * CPK is elevated (> 2000) -- from upper extremities? 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 - this is assuming he would even tolerate it although I questions if it would make a difference given his multitude of issues/problems at [facility] time (2) Acute respiratory failure with hypoxia: Code(s): J96.01 - Acute respiratory failure with hypoxia Status: Acute Assessment and Plan: * secondary to COVID-19 pneumonua * complicated by immunosuppressed status with HIV * intubated since 04/11/21 * prone positioning as tolerated * continue ventilator support (3) Pneumonia due to COVID-19 virus: Code(s): U07.1 - COVID-19; J12.82 - Pneumonia due to coronavirus disease 2018 Status: Acute Assessment and Plan: * COVID-19 positive * remains on isolation * s/p course of remdesivir and steroids * patient refused convalescent plasma therapy * follow inflammatory markers * holding tocilizumab or barcitinib therapy consider immunosuprresed status given known HIV disease (4) Hyperkalemia: Code(s): E87.5 - Hyperkalemia Status: Acute Assessment and Plan: * due to YOLANDA in association with hyperglycemia * doing better at this time s/p medical therapy (5) DVT (deep venous thrombosis): Code(s): I82.409 - Acute embolism and thrombosis of unspecified deep veins of unspecified lower extremity Status: Acute Assessment and Plan: * associated with PICC * attempted femoral arterial line placement le to hematoma as well * holding anticoagulation due to drop in H/H * conitnue supportive therapy (6) Anemia: Code(s): D64.9 - Anemia, unspecified Status: Acute Assessment and Plan: * dropping H/H noted * no obvious signs of bleeding * on PPI * unstable for imaging or EG * transfuse per protocol * follow Hgb (7) Diabetes mellitus: Code(s): E11.9 - Type 2 diabetes mellitus without complications Status: Chronic Assessment and Plan: * follow accuchecks * on SSI and Lantus Discussed case with Dr. Cleveland. Will continue to follow. Subjective Date/time seen: 04/15/21 11:55 His overall condition continues to deteriorate -- remains intubated/s edated/paralyzed and on full mechanical ventilator support; ongoing issues with hypoxia and desaturations despite high peep and 100% FiO2; continues with prone positioning as well; continues to require vasopressor support to maintain MAP/blood pressure as well. Exam Narrative: General: ill appearing male intubated/sedated/paralyzed in prone positioning Heart: tachycardic, normal S1 and S2; no rub Lungs: coarse breath sounds throughout Abdomen: soft, nontender, nondistended, positive bowel sounds Extremities: no cyanosis or clubbing; bilateral upper extremity noted Skin: taut in UEs Objective Data Vital Signs Vital Signs: Vital Signs Temp Pulse Resp BP Pulse Ox 04/15/21 11:55 36.9 C
[2021-04-15 12:21] LABS: Glucose Point of Care 343 mg/dl (65-105)
[2021-04-15 14:00] LABS: Anion Gap 21 mmol/L (8-16); Blood Urea Nitrogen 100 mg/dL (9-20); Calcium 7.8 mg/dL (8.4-10.2); Carbon Dioxide 22 mmol/L (22-30); Chloride 90 mmol/L (98-107); Estimated CRCL calculation 13 ml/min; Estimated Glomerular Filt Rate 10; Glucose 312 mg/dL (65-110); Sodium 133 mmol/L (137-145)
[2021-04-15] MEDS: SODIUM POLYSTYRENE SULFONONATE 15 GM/60 ML BTL 30 GM RECTAL (14:31)
[2021-04-15] MEDS: SODIUM BICARBONATE 8.4% 50 MEQ/50 ML SYRINGE 100 MEQ IV PUSH (14:32)
[2021-04-15 16:29] LABS: Glucose Point of Care 351 mg/dl (65-105)
[2021-04-15 17:25] LABS: Anion Gap 16 mmol/L (8-16); Blood Urea Nitrogen 103 mg/dL (9-20); Calcium 7.6 mg/dL (8.4-10.2); Carbon Dioxide 27 mmol/L (22-30); Chloride 90 mmol/L (98-107); Estimated CRCL calculation 12 ml/min; Estimated Glomerular Filt Rate 9; Glucose 313 mg/dL (65-110); Potassium 5.4 mmol/L (3.4-5.0); Sodium 133 mmol/L (137-145)
[2021-04-15 21:06] LABS: Glucose Point of Care 279 mg/dl (65-105)
[2021-04-16] VITALS (13 sets, daily range): BP systolic 109–119; BP diastolic 49–57; PULSE 97–110; RESP 30–31; TEMP 35.2–36.9; O2SAT 80–88
[2021-04-16 00:26] LABS: Glucose Point of Care 250 mg/dl (65-105)
[2021-04-16] MEDS: MIDAZOLAM 100MG/NS 100ML(*CRX) 100 MG/100 ML BAG IV CONT (03:29)
[2021-04-16] MEDS: CISATRACURIUM BESYLATE 200 MG in DEXTROSE 5% 80 ML 5.41 ML IV CONT (03:30)
[2021-04-16] MEDS: EPOPROSTENOL SODIUM 0.5 MG VIAL 1 MG INHALATION (03:39)
[2021-04-16 03:57] LABS: Basophils Percent Auto 0.2 % (0.2-1.2); Eosinophils Absolute Auto 0.1 K/mm3 (0-0.3); Eosinophils Percent Auto 0.5 % (0-4.4); Immature Granulocyte Absolute 0.22 K/mm3 (0.00-0.031); Immature Granulocyte Percent A 1.2 % (0-0.5); Lymphocytes Absolute Auto 0.63 K/mm3 (0.9-3.2); Lymphocytes Percent Auto 3.5 % (18.3-44.2); Mean Corpuscular HGB Conc 34.7 g/dl (32-36); Mean Corpuscular Hemoglobin 27.3 pg (26-34); Mean Corpuscular Volume 78.7 fl (80-100); Mean Platelet Volume 12.3 fl (7.4-10.4); Monocytes Absolute Auto 0.5 K/mm3 (0.1-0.6); Monocytes Percent Auto 2.7 % (2.6-8.5); Neutrophils Absolute Auto 16.4 K/mm3 (1.3-6.7); Neutrophils Percent Auto 91.9 % (45.5-73.1); Platelet Count Result 117 k/mm3 (150-375); Red Blood Count 2.53 M/mm3 (4.6-6.20); Red Cell Distribution Width 15.6 % (11.5-14.5); White Blood Count 17.9 K/mm3 (4.5-10.0)
[2021-04-16 04:02] LABS: Alveolar/Arterial O2 Gradient 625.1 mmHg; Base Excess ABG -4.9 mEq/l (+/-2.0); Carboxyhemoglobin 0.3 % THb (0-2.0); Fractional Inspired Oxygen 100 %; Methemoglobin ABG 1.2 %THb (0-1.5); Oxygen Content ABG 8.8 %vol (16.0-22.0); PCO2 ABG 35.8 mmHg (35.0-45.0); PO2 ABG 52.1 mmHg (80.0-100.0); PO2 FiO2 Ratio Arterial Blood 0.52 %; Reduced Hemoglobin 19.3 %THb (0-5.0); pH ABG 7.364 (7.350-7.450)
[2021-04-16 04:04] LABS: Device VENTILATOR; Modified Allen's Test Unable to perform; Oxyhemoglobin 79.2 % THb (90.0-100.0); Site Drawn RIGHT RADIAL; Total Hemoglobin 7.8 g/dL (12.0-18.0)
[2021-04-16 04:05] LABS: Arterial Blood Gas PEEP 18 cmH2O; Arterial Blood Gas Vent Mode PRESSURE CONTROL; Arterial Blood Gas Ventilator rate 30 /MIN; Peak Inspiratory Pressure 34 cmH2O
[2021-04-16 04:11] LABS: Hematocrit 19.9 % (42.0-52.0); Hemoglobin 6.9 g/dL (14.0-18.0)
[2021-04-16 04:34] LABS: Albumin Level 4.2 g/dL (3.5-5.1); Alkaline Phosphatase 241 U/L (38-126); Anion Gap 20 mmol/L (8-16); Bilirubin,Total 3.3 mg/dL (0.2-1.3); Blood Urea Nitrogen 112 mg/dL (9-20); Calcium 7.7 mg/dL (8.4-10.2); Carbon Dioxide 25 mmol/L (22-30); Chloride 92 mmol/L (98-107); Estimated CRCL calculation 11 ml/min; Estimated Glomerular Filt Rate 8; Glucose 180 mg/dL (65-110); Magnesium 2.9 mg/dL (1.6-2.3); Phosphorus 6.6 mg/dL (2.5-4.5); Potassium 4.5 mmol/L (3.4-5.0); Sodium 137 mmol/L (137-145)
[2021-04-16 04:44] LABS: Alanine Aminotransferase 1741 U/L (4-50); Aspartate Amino Transferase 2472 U/L (17-59)
[2021-04-17 14:11] LABS: Potassium 6.1 mmol/L (3.4-5.0)
--- NOTE | 2021-04-17 21:15 | ED.PROCEDURE ---
Procedures Other Procedures Procedure 1: Other Procedure: 04/16/2021 Called to bedside for cardiac arrest. Patient was initially in PEA rhythm at 0426. ACLS protocols were continued on the patient the patient had return of some spontaneous circulation at [address] Damon had talked to the family and made the patient DNR. At that time care was transitioned back to the hospitalist service as the patient was DNR.
[2021-04-18 15:55] LABS: Chloride Rand Ur <20 mmol/L (32-290); Creatinine Random Urine 149 mg/dL (20-320)
--- NOTE | 2021-05-31 13:18 | P.DN_ITS ---
Discharge Summary Date and Time Date of : 04/16/21 Time of : 04:47 Provider Pronounced By: naveed zamudio Probable Cause of Probable Cause of : cardiopulmonary arrest, covid 19 pneumonia Summary Hospital Course: 50-year-old male with a history of HIV/AIDS and on anti- retroviral therapy for last few years, diabetes mellitus, hypertension who presented to ER last night with chief complaint of shortness of breath for last 1 week. He states that he visits a sikhism where lot of members got sick from COVID. He states that his shortness of breath started around 1 week ago. Earlier in the course he had some fevers but has not had any fever for last 4 days.. He transiently lost his taste and smell for a day or so but has returned at this time. Over last 4 days shortness of breath has gotten worse and hence he presented to ER. Patient is unvaccinated for COVID and unvaccinated for influenza. In the emergency department patient had a white blood cell count of 10.3, lymphocytes were 8.1%, creatinine of 1.5, D-dimer was positive and a CT angiogram of the chest demonstrated no PE with diffuse interstitial alveolar infiltrates with consolidation in the lower lobes and patchy areas in the upper lobes. Patient was placed on BiPAP and admitted to ICU for further evaluation management. This morning when I saw the patient he continues to be on BiPAP. Limited history as mentioned above was obtainable as patient was on BiPAP and hard to understand. He denies any pain this time he denies feeling short of breath at this time although he is on BiPAP and tachypneic and has dry cough. Patient's oxygen requirements were increased during the course of the stay in the ICU, also into septic shock and acute renal failure. Patient was on 100% FiO2, peep of 18, Flolan on CMV mode of ventilation on maximum support despite which his oxygen levels were 75-80%. Patient's peak pressures were also elevated in the mid 50s. He was placed on pressure control ventilation, patient continued to be in prone position. Discussed with patient's father and is on: Updated them with patient's condition. Patient had a PEA arrest on 04/16/2021 and family made him DNR and withdraw support. Patient passed over on 04/16/2021, time of 4:47 a.m. Additional Data Confirmation of as documented by pronouncing clinician: Pupillary Reflex, Palpable Pulses, Response to Stimuli, Heart Tones and Breath Sounds Name of Provider Notified: dr naqvi Time Provider Notified: 04:47 Provider Requests Autopsy: No Family Requests Autopsy: No Equipment Or Machinery Cleaner Notified: Yes Date [facility] Notified of : 04/16/21 Time [facility] Notified of : 05:03 Advance directives: No Hospice patient?: No
== END 2021-04-16 04:47 | disposition expired | DRG 207 ==
LOC: ANHED 20:01 → ANHICU 21:28 → ANHIMU 04-09 14:03 → ANHICU 04-11 00:24
PROVIDERS: Hospitalist; Internal Medicine; Internal Medicine Pulmonary Disease; Admitting Provider Internal Medicine; Emergency Provider General Practice; PCP Physician Assistant Medical; Visit Provider Internal Medicine
DX: U07.1 COVID-19 (principal); J12.82 Pneumonia due to coronavirus disease 2019; J96.01 Acute respiratory failure with hypoxia; I82.622 Acute embolism and thrombosis of deep veins of left upper extremity; I82.409 Acute embolism and thrombosis of unspecified deep veins of unspecified lower extremity; N17.9 Acute kidney failure, unspecified; I46.9 Cardiac arrest, cause unspecified; Z66 Do not resuscitate; Z21 Asymptomatic human immunodeficiency virus [HIV] infection status; Z88.2 Allergy status to sulfonamides; Z79.84 Long term (current) use of oral hypoglycemic drugs; I10 Essential (primary) hypertension; E78.5 Hyperlipidemia, unspecified; E66.9 Obesity, unspecified; Z68.35 Body mass index [BMI] 35.0-35.9, adult; E87.5 Hyperkalemia; E11.65 Type 2 diabetes mellitus with hyperglycemia; E11.22 Type 2 diabetes mellitus with diabetic chronic kidney disease; I12.9 Hypertensive chronic kidney disease with stage 1 through stage 4 chronic kidney disease, or unspecified chronic kidney disease; N18.30 Chronic kidney disease, stage 3 unspecified; Z91.14 Patient's other noncompliance with medication regimen; I95.9 Hypotension, unspecified; D64.9 Anemia, unspecified; M79.89 Other specified soft tissue disorders
CPT/HCPCS: 36415; 36430; 36569; 36600; 71045; 71275; 76775; 80048; 80053; 80202; 81001; 82375; 82436; 82550; 82565; 82570; 82728; 82805; 82948; 83036; 83050; 83605; 83615; 83735; 83880; 84100; 84133; 84300; 84460; 84484; 85025; 85027; 85055; 85380; 85610; 85730; 85999; 86140; 86361; 86850; 86900; 86901; 86920; 87040; 87086; 87385; 87449; 87486; 87497; 87581; 87633; 87804; 87899; 92950; 93005; 93971; 94002; 94003; 96374; 96375; 99291; A9270; C1751; C9113; C9803; J0171; J0456; J0610; J0692; J0696; J1100; J1644; J1650; J1815; J1940; J2250; J2765; J2997; J3010; J3370; J7030; J7040; P9016; P9047; Q9967; U0003; U0005